=== PATIENT | female | born 1970 | race Caucasian/White ===

== ENCOUNTER 2024-08-26 15:49 | Outpatient (AMB) | payer BC, SELFPAY ==
--- NOTE | 2024-08-26 16:01 | A.OFFPC_ITS ---
Vital Signs 08/26/24 16:05 Height 5 ft 11.65 in Weight 163 lb 2 oz BMI 22.3 BP 100/62 Blood Pressure Location Lt brachial Position Sitting Pulse 60 Pulse Source Pulse Oximeter Temp 97.3 F Temp Source Temporal Artery Scan Pulse Oximetry (%) 98 Oxygen Delivery Method Room Air Intake Visit Reasons: new patient Intake Note: Patient is a new patient here to establish care for Low blood pressure. Transferring care from [facility] ([facility]). Medical records been have requested and have not received. Black And White Printer Operator Required: No Reed Cleaner: Not Required per policy Accompanied by: Self / Same As Patient Allergies No Known Allergies Allergy (Unknown, Verified 08/26/24 16:24) Medication List - Last Reconciled 08/26/24 by Candy Mansfield PA-C No Known Home Meds Tobacco use date assessed: 08/26/24 Dental Screening Dental Screen Date: 08/26/24 Did you have a dental visit in the last 12 months?: Yes Did you have a dental problem in the last 6 months where you did not have access to dental care?: No Was dental information given to patient?: Patient has dentist HPI new patient HPI Details 53-year-old female coming to the office with the 1st time. Presenting for a comprehensive wellness check-up. She has been experiencing mild seasonal allergies, self-diagnosed by symptoms that increase with age. Historically, she had severe episodes of vertigo approximately 8 to 10 years ago, with recent minor occurrences that are manageable. The patient identifies a history of low blood pressure, causing slight dizziness when standing hastily, which she relates to familial trends. She describes vaginal dryness post- menopause without significant discomfort. Patient was last seen by her PCP summer and had a physical exam at that time. She is not up-to-date on Pap smears and has not seen a coremaker in some time. She is also due for her yearly mammogram. Her last colonoscopy was 2 years ago few polyps were removed and advised to follow up in 5 years. 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 1. Little interest or pleasure in doing things: not at all 2. Feeling down, depressed, or hopeless: not at all 3. Trouble falling or staying asleep, or sleeping too much: not at all 4. Feeling tired or having little energy: not at all 5. Poor appetite or overeating: not at all 6. Feeling bad about yourself - or that you are a failure or have let yourself or your family down: not at all 7. Trouble concentrating on things, such as reading the newspaper or watching television: not at all 8. Moving or speaking so slowly that other people could have noticed. Or the opposite - being so fidgety or restless that you have been moving around a lot more than usual: not at all 9. Thoughts that you would be better off or of hurting yourself in some way: not at all Total score: 0 Depression Screening Interpretation: Negative Depression Screening Done: Yes Source: Developed by Drs. Leeroy Villa, Maryellen Marks, Robson Mendiola and colleagues, with an educational diana from [employer]. Thrive Questionnaire Date Thrive assessed: 08/26/24 I am a: Patient What is your living situation today?: I have a steady place to live Within the past 12 months, did the food you bought not last and you didn't have the money to get more?: Never true Within the past 12 months, did you worry whether your food would run out before you got money to buy more?: Never true Do you have trouble paying for medicines?: No Do you have trouble getting transportation to medical appointments?: No Do you have trouble paying your heating and electricity bill?: No Do you have trouble taking care of your child, family member or friend?: No Do you have trouble with day-to-day activities such as bathing, preparing meals, shopping, managing finances, etc.?: No Are you currently unemployed and looking for a job?: No Are you interested in more education?: No Please select the resources that you would like help with: None Currently or been in a relationship where the following occur: No concerns reported THRIVE Score: 0 AUDIT C Alcohol Use Questionnaire (AUDIT-C) 1. How often do you have a drink containing alcohol?: 2-4 times a month 2. How many drinks containing alcohol do you have on a typical day when you are drinking?: 1 or 2 3. How often do you have six or more drinks on one occasion?: Never Total Score: 2 NICHOLAS-7 AMB Questionnaire NICHOLAS-7 Date NICHOLAS - 7 assessed: 08/26/24 Feeling nervous, anxious, or on edge: 0 = Not at all Not being able to stop or control worryin = Not at all Worrying too much about different things: 0 = Not at all Trouble relaxin = Not at all Being so restless that it is hard to sit still: 0 = Not at all Becoming easily annoyed or irritable: 0 = Not at all Feeling afraid as if something awful might happen: 0 = Not at all Total NICHOLAS-7 score (0-4 normal; 5-9 mild; 10-14 moderate; 15-21 severe): 0 Source: Developed by Drs. Leeroy Villa, Maryellen Marks, Robson Mendiola and colleagues, with an educational diana from [employer]. Review of Systems Const Denies body aches, Denies chills, Denies fever(s), Denies headache(s) and Denies poor appetite Eyes Reports no additional complaints and Reports requires corrective lenses ENT Denies dysphagia, Denies dizziness, Denies headache(s) and Denies odynophagia Card Denies chest pain, Denies syncope, Denies edema, Denies irregular heart rhythm, Denies lightheadedness and Denies dyspnea Resp Denies cough and Denies dyspnea GI Denies abdominal pain, Denies constipation, Denies dysphagia, Denies diarrhea, Denies nausea, Denies odynophagia and Denies vomiting Reports no additional complaints Musc Reports no additional complaints and Denies abnormal gait Skin/Breast Reports system reviewed and no additional complaints, except as documented Neuro Denies abnormal gait, Denies dizziness, Denies syncope and Denies headache(s) Psych Reports no additional complaints Physical exam (Primary Care) Vital Signs: Last Vital Signs Temp 97.3 F 08/26/24 16:05 Pulse 60 08/26/24 16:05 BP 100/62 08/26/24 16:05 Pulse Ox 98 08/26/24 16:05 Oxygen Delivery Method Room Air 08/26/24 16:05 BMI result Body Mass Index 22.3 Tobacco/Smoking Status: Tobacco use Status Tobacco use date assessed 08/26/24 08/26/24 16:09 Patient Tobacco Use Status Never used Tobacco 08/26/24 16:14 e-Cigarette/Vaping Use Never Used 08/26/24 16:09 PHQ-9: PHQ-9 Score PHQ-9: Total score 0 08/26/24 16:09 Depression Screening Interpretation: Negative Thrive Assessment: Date of Thrive Assessment Date Thrive assessed 08/26/24 08/26/24 16:09 Currently or been in a relationship where the following occur: No concerns reported Const General: cooperative, healthy appearing, comfortable and no acute distress Orientation/consciousness: patient oriented x3 HENMT Head: Yes normocephalic Ears: hearing grossly normal bilaterally General nose exam: Normal external nose present Eyes General: appearance normal, both eyes and all related structures Conjunctivae: conjunctivae normal Neck Neck: Yes full ROM and Yes no lymphadenopathy Resp Effort & Inspection: normal respiratory effort Auscultation: clear to auscultation bilaterally, no crackles, no rales, no rhonchi and no wheezes Cardio Rate: regular rate Rhythm: regular rhythm Skin General skin exam: no rashes or lesions noted Neuro General: patient oriented x3 Gait exam (Neuro): Normal gait present Extrem General: Yes normal to inspection, Yes full ROM and No edema Psych Affect: normal affect Attitude: cooperative Insight: Good insight present (Psych) Judgement: Good judgement present (Psych) Coding Level of Care Code New Pt Level 3 (60908) Diagnoses BPPV (benign paroxysmal positional vertigo) H81.10 Screening for breast cancer Z12.39 Screening for colorectal cancer Z12.11; Z12.12 Screening for cervical cancer Z12.4 Seasonal allergies J30.2 Vaginal dryness N89.8 Assessment & Plan Assessment & Plan (1) BPPV (benign paroxysmal positional vertigo): Code(s): H81.10 - Benign paroxysmal vertigo, unspecified ear Category: Medical Plan: Patient has extensive history of BPPV 1st noted 8-10 years ago that improved. Underlying cause was not identified. She has had minor recurrences that has been manageable. (2) Screening for breast cancer: Code(s): Z12.39 - Encounter for other screening for malignant neoplasm of breast Category: Medical Plan: Referral was placed for mammogram. Patient was printed a copy as she would like to go to [facility] for this testing. (3) Screening for colorectal cancer: Comment: 2022 repeat in 5 years Code(s): Z12.11 - Encounter for screening for malignant neoplasm of colon; Z12.12 - Encounter for screening for malignant neoplasm of rectum Category: Medical Plan: Previous colonoscopy 2022 few polyps were removed and advised to follow up in 5 years. (4) Screening for cervical cancer: Code(s): Z12.4 - Encounter for screening for malignant neoplasm of cervix Category: Medical Plan: Referral was placed to gynecology today for routine Pap smear. (5) Seasonal allergies: Code(s): J30.2 - Other seasonal allergic rhinitis Category: Medical Plan: Patient to continue using [id number] as needed. (6) Vaginal dryness: Code(s): N89.8 - Other specified noninflammatory disorders of vagina Category: Medical Plan: Patient does report some degree of vaginal dryness associated with a postmenopausal symptoms. She does not find them bothersome at this time and declines management. Plan During the wellness check-up, we discussed ongoing health maintenance strategies and screening tests. I placed a referral for a mammogram and noted that the patient is overdue for a gynecological examination, especially to address mild symptoms of vaginal dryness, likely postmenopausal. As part of her previous colonoscopy, the removal of polyps suggests a follow-up schedule to be slightly altered from the regular intervals. Her low blood pressure remains stable with self-reported occasional dizziness, with vertigo episodes being mild and managed independently. We will continue monitoring her seasonal allergies without immediate escalation to allergenic testing, as symptoms are mild. The patient and I agreed on the current trajectory of care while ensuring comfort with scheduling preferences to local facilities she favors for care continuity. Recent blood work completed by her insurance company plan to bring these to next visit. This note was constructed using voice recognition software. While every effort has been made to ensure accuracy and oxidation engineer, still areas may have been included sometimes these areas may affect the content or meeting of the given symptoms. Total time spent caring for the patient today was 30 minutes. This includes time spent before the visit reviewing the chart, time spent during the visit, and time spent after the visit and documentation. Patient was informed and verbally consented to the use of an ambient scribe for clinic note documentation during this visit. Orders: Orders MM tomosynthesis screening BI Today Z12.31 - Encounter for screening mammogram for malignant neoplasm of breast Referrals ASSEMBLY WORKER Referral Z12.4 - Encounter for screening for malignant neoplasm of cervix
[2024-08-26 16:05] VITALS: BP 100/62; PULSE 60; TEMP 36.3; O2SAT 98; BMI 22.3
== END 2024-08-26 16:39 | disposition home or self-care (01) ==
LOC: HO.HMCH 15:50
DX: H81.10 Benign paroxysmal vertigo, unspecified ear (principal); Z12.39 Encounter for other screening for malignant neoplasm of breast; Z12.11 Encounter for screening for malignant neoplasm of colon; Z12.12 Encounter for screening for malignant neoplasm of rectum; Z12.4 Encounter for screening for malignant neoplasm of cervix; J30.2 Other seasonal allergic rhinitis; N89.8 Other specified noninflammatory disorders of vagina

== ENCOUNTER → 2024-08-26 15:49 | Outpatient (BNVA) | payer BC, SELFPAY | DX: Z13.89 Encounter for screening for other disorder (principal) ==

== ENCOUNTER 2024-09-10 14:20 | Outpatient (AMB) | payer BC, SELFPAY ==
--- NOTE | 2024-09-10 14:24 | MHC.PC.OV ---
Vital Signs 09/10/24 14:25 Height 5 ft 11.65 in Weight 161 lb 8 oz BMI 22.1 BP 120/70 Blood Pressure Location Lt brachial Position Sitting Pulse 71 Pulse Source Pulse Oximeter Temp 97.1 F Temp Source Temporal Artery Scan Pulse Oximetry (%) 98 Oxygen Delivery Method Room Air Intake Visit Reasons: tick bite Intake Note: Patient is here to follow up on Tick bite on left hip with rash. Car Deliverer Required: No Office Support: Not Required per policy Accompanied by: Self / Same As Patient Allergies No Known Allergies Allergy (Unknown, Verified 09/10/24 14:39) Medication List - Last Reconciled 09/10/24 by Candy Mansfield PA-C No Known Home Meds Tobacco use date assessed: 09/10/24 Dental Screening Dental Screen Date: 08/26/24 HPI tick bite HPI Details 53 year old female with past history of BPPV coming in for acute concern. The patient is a 53-year-old female presenting with widespread itchiness secondary to a rash. The patient experienced a tick bite lasting less than an hour, with no erythema migrans observed. Itchy rash initially localized but has since spread across the trunk; the patient could not directly relate the onset to the tick bite. Recent travel and hotel stays are noted, alongside possible environmental allergen exposure during gardening activities. The presentation of the rash correlated with areas of tight-fitting clothing, leading to suspicion of a contact dermatitis. No vesicular or pustular lesions reported. 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 Cognitive needs: No Hearing needs: No Vision needs: Yes (Glasses) Questionnaire Thrive Questionnaire Date Thrive assessed: 08/26/24 I am a: Patient What is your living situation today?: I have a steady place to live Within the past 12 months, did the food you bought not last and you didn't have the money to get more?: Never true Within the past 12 months, did you worry whether your food would run out before you got money to buy more?: Never true Do you have trouble paying for medicines?: No Do you have trouble getting transportation to medical appointments?: No Do you have trouble paying your heating and electricity bill?: No Do you have trouble taking care of your child, family member or friend?: No Do you have trouble with day-to-day activities such as bathing, preparing meals, shopping, managing finances, etc.?: No Are you currently unemployed and looking for a job?: No Are you interested in more education?: No Please select the resources that you would like help with: None Currently or been in a relationship where the following occur: No concerns reported THRIVE Score: 0 NICHOLAS-7 AMB Questionnaire NICHOLAS-7 Date NICHOLAS - 7 assessed: 08/26/24 Source: Developed by Drs. Leeroy Villa, Maryellen Marks, Robson Mendiola and colleagues, with an educational diana from [email or web address]. Review of Systems Const Denies body aches, Denies chills, Denies fever(s), Denies headache(s) and Denies poor appetite Eyes Reports no additional complaints ENT Denies dizziness and Denies headache(s) Card Denies chest pain, Denies lightheadedness and Denies dyspnea Resp Denies dyspnea GI Denies nausea and Denies vomiting Reports no additional complaints Musc Reports no additional complaints and Denies abnormal gait Skin/Breast Reports as per HPI Neuro Denies abnormal gait, Denies dizziness and Denies headache(s) Psych Reports no additional complaints Physical exam (Primary Care) Vital Signs: Last Vital Signs Temp 97.1 F 09/10/24 14:25 Pulse 71 09/10/24 14:25 BP 120/70 09/10/24 14:25 Pulse Ox 98 09/10/24 14:25 Oxygen Delivery Method Room Air 09/10/24 14:25 BMI result Body Mass Index 22.1 Tobacco/Smoking Status: Tobacco use Status Tobacco use date assessed 09/10/24 09/10/24 14:30 Patient Tobacco Use Status Never used Tobacco 09/10/24 14:30 e-Cigarette/Vaping Use Never Used 09/10/24 14:30 Thrive Assessment: Date of Thrive Assessment Date Thrive assessed 08/26/24 09/10/24 14:30 Currently or been in a relationship where the following occur: No concerns reported Const General: cooperative, healthy appearing, comfortable and no acute distress Orientation/consciousness: patient oriented x3 HENMT Head: Yes normocephalic Ears: hearing grossly normal bilaterally General nose exam: Normal external nose present Eyes General: appearance normal, both eyes and all related structures Conjunctivae: conjunctivae normal Neck Neck: Yes full ROM and Yes no lymphadenopathy Resp Effort & Inspection: normal respiratory effort Cardio Rate: regular rate Skin Other: No erythema migraines. Maculopapular rash on an erythematous base along the left belt line and left bra line. No areas of open skin and no vesicular lesions General skin exam: no rashes or lesions noted Full body images: 1. Rash 2. Rash Neuro General: patient oriented x3 Gait exam (Neuro): Normal gait present Extrem General: Yes normal to inspection, Yes full ROM and No edema Psych Affect: normal affect Attitude: cooperative Insight: Good insight present (Psych) Judgement: Good judgement present (Psych) Coding Level of Care Code Est Pt Level 3 (94073) Diagnoses Tick bite W57.XXXA Contact dermatitis L25.9 Assessment & Plan Assessment & Plan (1) Tick bite: Code(s): W57.XXXA - Bitten or stung by nonvenomous insect and other nonvenomous arthropods, initial encounter Category: Medical Plan: Patient having tick bite in the left hip she is requesting prophylaxis with doxycycline and antibiotic has been sent to pharmacy. (2) Contact dermatitis: Code(s): L25.9 - Unspecified contact dermatitis, unspecified cause Category: Medical Plan: Patient having rash on the hip and left side of the chest consistent with contact dermatitis. Rash not consistent with shingles and does not appear to be infectious. She does report the rash is itchy in nature and has been spreading of the abdomen. Plan to treat with prednisone taper and oral antihistamine. Advised patient if rash does not improve or returns to reach out to the office. Plan This note was constructed using voice recognition software. While every effort has been made to ensure accuracy and linux systems engineer, still areas may have been included sometimes these areas may affect the content or meeting of the given symptoms. Total time spent caring for the patient today was 20 minutes. This includes time spent before the visit reviewing the chart, time spent during the visit, and time spent after the visit and documentation. Patient was informed and verbally consented to the use of an ambient scribe for clinic note documentation during this visit.
[2024-09-10 14:25] VITALS: BP 120/70; PULSE 71; TEMP 36.2; O2SAT 98; BMI 22.1
== END 2024-09-10 14:58 | disposition home or self-care (01) ==
LOC: HO.HMCH 14:21
DX: T63.481A Toxic effect of venom of other arthropod, accidental (unintentional), initial encounter (principal); L25.9 Unspecified contact dermatitis, unspecified cause

== ENCOUNTER → 2024-09-10 14:20 | Outpatient (BNVA) | payer BC, SELFPAY | DX: Z13.89 Encounter for screening for other disorder (principal) ==

== ENCOUNTER 2024-12-27 14:51 | Outpatient (AMB) | payer BC, SELFPAY ==
--- OUTSIDE RECORDS SUMMARY | 2024-12-27 14:55 | XMS_ITS | Encounter Summary ---
Author Organization [facility] Address [address] [facility] [address] [place] [id number] Phone Care Team Providers Care Brazer Crawler Torch Name Role Phone Chyna Soliman MD Primary Care Provider Chyna Soliman MD Unavailable [phone] Fallon Shrestha-C Unavailable Candy Mansfield Primary Care Provide r Encounter Details Date Type Department Care Team (Late st Contact Info) Description 04/09/2018 Ancillary Orders Virtual Department [address] [place] [address] Toma Lowe PA [address] [place] [address] [email or web address] et Elevated LFTs; Epigastric pain Social History Tobacco Use Types Packs/Day Years Used Date Smoking Tobacco: Never Alcohol Use Standard Drinks/Week Comments No 0 (1 standard drink = 0.6 oz pur e alcohol) Comments No Sex and Gender Information Value Date Recorded Sex Assigned at Female 04/08/2018 6:35 AM EST Legal Sex Female 4:00 AM EST Gender Identity Female 04/08/2018 6:35 AM EST Sexual Orientation Lesbian or John 11/10/2019 1: 30 PM EDT documented as of this encounter Plan of Treatment Upcoming Encounters Date Type Department Care Team (Late st Contact Info) Description 10/17/2024 Procedure Pass [address] [address] 06/06/2025 7:30 AM EST Appointment [address] [address] Chaparrita Titus MD [address] [facility], [address] [place] [address] .RipCode documented as of this encounter Results * US Abdomen Complete (04/23/2018 7:45 AM EST) Anatomical Region Laterality Modality Abdomen Ultrasound 04/23/2018 8:27 AM EST Impressions 04/23/2018 8:34 AM EST Cholelithiasis. No ultrasound evidence of cholecystitis. POS - [id number] Narrative 04/23/2018 8:34 AM EST EXAM: US ABDOMEN COMPLETE COMPARISON: None HISTORY: Elevated LFTs Epigastric pain TECHNIQUE: Ultrasound examination of the abdomen was performed and multiple static images obtained. FINDINGS: LIVER: Normal size, contour, and echotexture. Small cyst is identified at the periphery of the right hepatic lobe measuring up to 0.7 cm. BILIARY: Multiple mobile gallstones. No gallbladder distention, wall thickening or pericholecystic fluid. Common bile duct measures 0.3 cm. PANCREAS: Visualized portions of the pancreas are unremarkable. SPLEEN: The spleen measures 10.6 cm in sagittal dimension. No focal lesions demonstrated. KIDNEYS: The right kidney measures 11.1 cm in sagittal dimension. No hydronephrosis.. No ultrasound evidence for nephrolithiasis. The left kidney measures 10.7 cm in sagittal dimension. No hydronephrosis.. No ultrasound evidence for nephrolithiasis. MIDLINE VASCULATURE: Visualized aorta and IVC are unremarkable. Procedure Note Kary Saleem MD - 04/23/2018 EXAM: US ABDOMEN COMPLETE COMPARISON: None HISTORY: Elevated LFTs Epigastric pain TECHNIQUE: Ultrasound examination of the abdomen was performed andmultiple static images obtained. FINDINGS: LIVER: Normal size, contour, and echotexture. Small cyst is identified atthe periphery of the right hepatic lobe measuring up to 0.7 cm. BILIARY: Multiple mobile gallstones. No gallbladder distention, wallthickening or pericholecystic fluid. Common bile duct measures 0.3cm. PANCREAS: Visualized portions of the pancreas are unremarkable. SPLEEN: The spleen measures 10.6 cm in sagittal dimension. No focallesions demonstrated. KIDNEYS: The right kidney measures 11.1 cm in sagittal dimension. Nohydronephrosis.. No ultrasound evidence for nephrolithiasis. The left kidney measures 10.7 cm in sagittal dimension. Nohydronephrosis.. No ultrasound evidence for nephrolithiasis. MIDLINE VASCULATURE: Visualized aorta and IVC are unremarkable. IMPRESSION: Cholelithiasis. No ultrasound evidence of cholecystitis. POS - [id number] us Toma ROSS IMG US ABDOMEN Final Result documented in this encounter Visit Diagnoses Diagnosis Elevated LFTs Other abnormal blood chemistry Epigastric pain Abdominal pain, epigastric Elevated LFTs Other abnormal blood chemistry Epigastric pain Abdominal pain, epigastric documented in this encounter Care Teams Brazer Crawler Torch Relationship Specialty Start Date End Date Chyna Soliman MD [address] [place] [address] PCP - General 04/27/17 10/16/24 Candy Mansfield PA [address] [place] [address] [place] [address] PCP - General Physician Hand Cell Tuber 10/17/24 Chyna Soliman MD [address] [place] [address] Insurance Assigned Provider 07/29/23 01/28/24 Fallon Shrestha PA-C [address] [place] [id number] [email or web address] Physician Hand Cell Tuber Hematology 06/14/23 documented as of this encounter Additional Source Comments The information contained in this document represents components of the legal health record. It is not the complete legal health record.[facility]
--- OUTSIDE RECORDS SUMMARY | 2024-12-27 14:55 | XMS_ITS | Encounter Summary ---
Author Organization [facility] Address [address] [facility] [address] [place] [address] Phone Care Team Providers Care Extras Casting Director Name Role Phone Chyna Soliman MD Primary Care Provider [phone] Chyna Soliman MD Unavailable Fallon Shrestha-C Unavailable [phone] Candy Mansfield Primary Care Provide r Encounter Details Date Type Department Care Team (Late st Contact Info) Description 10/16/2017 Ancillary Orders Virtual Department [address] [place] [address] Toma Lowe PA [address] [place] [address] [email or web address] Breast screening Social History Tobacco Use Types Packs/Day Years Used Date Smoking Tobacco: Never Assessed Comments Unknown Sex and Gender Information Value Date Recorded Sex Assigned at Female 04/08/2018 6:35 AM EST Legal Sex Female 4:00 AM EST Gender Identity Female 04/08/2018 6:35 AM EST Sexual Orientation Lesbian or John 11/10/2019 1: 30 PM EDT documented as of this encounter Plan of Treatment Upcoming Encounters Date Type Department Care Team (Late st Contact Info) Description 10/17/2024 Procedure Pass [facility], [facility] [address] [place] [address] 06/06/2025 7:30 AM EST Appointment [facility], Mammography- [facility] [address] [place] [address] Chaparrita Titus MD [address] [place] [address], [address] [place] [address] [email or web address] documented as of this encounter Results * BI MAMMOGRAM SCREENING WITH TOMOSYNTHESIS WITH CAD (BILATERAL) (11/17/2017 10:21 AM EDT) Anatomical Region Laterality Modality Breast Left, Breast Right, Breast Bilateral Bila teral Mammography 11/17/2017 10:2 6 AM EDT Impressions 11/17/2017 10:30 AM EDT No mammographic evidence of malignancy. Recommend routine annual surveillance. BI-RADS CATEGORY: 2 - Benign finding. DENSITY: There are scattered fibroglandular densities. POS - CDHMAMA Narrative 11/17/2017 10:30 AM EDT 47-year-old female with no current breast symptoms. Comparison made to previous on 12/30/2015. Interpretation made in conjunction with computer-aided detection and tomosynthesis. There are scattered areas of fibroglandular density. Stable scattered benign bilateral calcifications and asymmetry in the inferior left breast on the MLO view. There are no suspicious masses, areas of architectural distortion, or suspicious clusters of microcalcifications. Procedure Note Mary Jo Tilley MD - 11/17/2017 47-year-old female with no current breast symptoms. Comparison made toprevious on 12/30/2015. Interpretation made in conjunction withcomputer-aided detection and tomosynthesis. There are scattered areas of fibroglandular density. Stable scatteredbenign bilateral calcifications and asymmetry in the inferior left breaston the MLO view. There are no suspicious masses, areas of architectural distortion, orsuspicious clusters of microcalcifications. IMPRESSION: No mammographic evidence of malignancy. Recommend routine annualsurveillance. BI-RADS CATEGORY: 2 - Benign finding. DENSITY: There are scattered fibroglandular densities. POS - CDHMAMA Toma ROSS IMG MG EXAMS Final Result documented in this encounter Visit Diagnoses Diagnosis Breast screening Breast screening, unspecified Breast screening Breast screening, unspecified documented in this encounter Care Teams Extras Casting Director Relationship Specialty Start Date End Date Chyna Soliman MD [address] [place] [address] PCP - General 04/27/17 10/16/24 Candy Mansfield PA [address] [place] [address] [place] [address] PCP - General Physician Direct Customer Service Representative 10/17/24 Chyna Soliman MD [address] [place] [phone] [email or web address] Insurance Assigned Provider 07/29/23 01/28/24 Fallon Shrestha PA-C [address] [place] [address] Physician Direct Customer Service Representative Hematology 06/14/23 documented as of this encounter Additional Source Comments The information contained in this document represents components of the legal health record. It is not the complete legal health record.[facility]
--- OUTSIDE RECORDS SUMMARY | 2024-12-27 14:55 | XMS_ITS | Encounter Summary ---
Author Organization [facility] Address [address] [facility] [address] [place] [address] Phone Care Team Providers Care Skidder Driver Name Role Phone Chyna Soliman MD Primary Care Provider Chyna Soliman MD Unavailable Fallon Shrestha PA-C Unavailable Candy Mansfield Primary Care Provide r Encounter Details Date Type Department Care Team (Late st Contact Info) Description 02/22/2022 Procedure Pass [facility] Endoscopy Admitting Dept Virtual Department [address] [place] [address] Social History Tobacco Use Types Packs/Day Years Used Date Smoking Tobacco: Never Smokeless Tobacco: Never Alcohol Use Standard Drinks/Week Comments Yes 1 (1 standard drink = 0.6 oz pur [...] Encounters Date Type Department Care Team (Late Contact Info) Description 10/17/2024 Procedure Pass [address] [address] 06/06/2025 7:30 AM EST Appointment [address] [place] [address] Chaparrita Titus MD [address] [facility], [address] [place] [address] documented as of this encounter Visit Diagnoses Not on filedocumented in this encounter Care Teams Skidder Driver Relationship Specialty Start Date End Date Chyna Soliman MD [address] [place] [address] PCP - General 04/27/17 10/16/24 Candy Mansfield PA [address] [place] [address] PCP - General Physician Mobile Health Vehicle Operator 10/17/24 Chyna Soliman MD [address] [place] [phone] Insurance Assigned Provider 07/29/23 01/28/24 Fallon Shrestha PA-C [address] [place] [address] Physician Mobile Health Vehicle Operator Hematology 06/14/23 documented as of this encounter Additional Source Comments The information contained in this document represents components of the legal health record. It is not the complete legal health record.[facility]
--- OUTSIDE RECORDS SUMMARY | 2024-12-27 14:55 | XMS_ITS | Encounter Summary ---
Author Organization [facility] Address [address] [facility] [address] [place] [address] Phone Care Team Providers Care Taste Tester Name Role Phone Chyna Soliman MD Primary Care Provider Chyna Soliman MD Unavailable Fallon Shrestha-C Unavailable Candy Mansfield Primary Care Provide r Encounter Details Date Type Department Care Team (Late st Contact Info) Description 11/17/2017 Ancillary Orders Virtual Department [address] [place] [address] Chyna Soliman MD [address] [place] [address] [email or web address] Breast screening Social History Tobacco Use Types Packs/Day Years Used Date Smoking Tobacco: Never Assessed Comments No Sex and Gender Information Value Date Recorded Sex Assigned at Female 04/08/2018 6:35 AM EST Legal Sex Female 4:00 AM EST Gender Identity Female 04/08/2018 6:35 AM EST Sexual Orientation Lesbian or John 11/10/2019 1: 30 PM EDT documented as of this encounter Plan of Treatment Upcoming Encounters Date Type Department Care Team (Late st Contact Info) Description 10/17/2024 Procedure Pass [facility], [facility]- [address] [address] 06/06/2025 7:30 AM EST Appointment [facility], Mammography- [facility] [address] [place] [address] Chaparrita Titus MD [address] [place] [address], [address] [place] [address] [email or web address] documented as of this encounter Results * BI MAMMOGRAM SCREENING WITH TOMOSYNTHESIS WITH CAD (BILATERAL) (11/19/2018 7:41 AM EDT) Anatomical Region Laterality Modality Breast Left, Breast Right, Breast Bilateral Bila teral Mammography 11/19/2018 7:48 AM EDT Impressions 11/19/2018 7:51 AM EDT No mammographic evidence of malignancy. Recommend routine annual surveillance. BI-RADS CATEGORY: 2 - Benign finding. DENSITY: There are scattered fibroglandular densities. POS - [email or web address] Narrative 11/19/2018 7:51 AM EDT 48-year-old female with no current breast symptoms. Comparison made to previous on 11/17/2017 and 12/30/2015. Interpretation made in conjunction with computer-aided detection and tomosynthesis. There are scattered areas of fibroglandular density. Stable benign bilateral calcifications. The inferior left breast asymmetry on the MLO is less apparent. There are no suspicious masses, areas of architectural distortion, or suspicious clusters of microcalcifications. Procedure Note Mary Jo Tilley MD - 11/19/2018 48-year-old female with no current breast symptoms. Comparison made toprevious on 11/17/2017 and 12/30/2015. Interpretation made in conjunctionwith computer-aided detection and tomosynthesis. There are scattered areas of fibroglandular density. Stable benignbilateral calcifications. The inferior left breast asymmetry on the MLOis less apparent. There are no suspicious masses, areas of architectural distortion, orsuspicious clusters of microcalcifications. IMPRESSION: No mammographic evidence of malignancy. Recommend routine annualsurveillance. BI-RADS CATEGORY: 2 - Benign finding. DENSITY: There are scattered fibroglandular densities. POS - CDHMAM2 Chyna Soliman MD IMG MG EXAMS Final Resul t documented in this encounter Visit Diagnoses Diagnosis Breast screening Breast screening, unspecified Breast screening Breast screening, unspecified documented in this encounter Care Teams Taste Tester Relationship Specialty Start Date End Date Chyna Soliman MD [address] [place] [address] PCP - General 04/27/17 10/16/24 Candy Mansfield PA [address] [place] [address] [place] [address] PCP - General Physician Case Management Specialist 10/17/24 Chyna Soliman MD [address] [place] [address] Insurance Assigned Provider 07/29/23 01/28/24 Fallon Shrestha PA-C [address] [place] [address] Physician Case Management Specialist Hematology 06/14/23 documented as of this encounter Additional Source Comments The information contained in this document represents components of the legal health record. It is not the complete legal health record.[facility]
--- OUTSIDE RECORDS SUMMARY | 2024-12-27 14:56 | XMS_ITS | Encounter Summary ---
Author Organization [facility] Address [address] [facility] [address] [place] [address] Phone Care Team Providers Care Invoice Control Clerk Name Role Phone Chyna Soliman MD Primary Care Provider Chyna Soliman MD Unavailable [phone] Fallon Shrestha PA-C Unavailable [phone] Candy Mansfield Primary Care Provide r Encounter Details Date Type Department Care Team (Late st Contact Info) Description 11/24/2020 Procedure Pass [address] [address] Social History Tobacco Use Types Packs/Day Years [...] st Contact Info) Description 10/17/2024 Procedure Pass [address] [address] 06/06/2025 7:30 AM EST Appointment [place] [address] [place] [address] Chaparrita Titus MD 22 [facility], [address] [place] [address] documented as of this encounter Visit Diagnoses Not on filedocumented in this encounter Care Teams Invoice Control Clerk Relationship Specialty Start Date End Date Chyna Soliman MD [address] [place] [address] PCP - General 04/27/17 10/16/24 Candy Mansfield PA [address] [place] [address] PCP - General Physician Service Order Clerk 10/17/24 Chyna Soliman MD [address] [place] [address] Insurance Assigned Provider 07/29/23 01/28/24 Fallon Shrestha PA-C [address] [place] [address] Physician Service Order Clerk Hematology 06/14/23 documented as of this encounter Additional Source Comments The information contained in this document represents components of the legal health record. It is not the complete legal health record.[facility]
--- OUTSIDE RECORDS SUMMARY | 2024-12-27 14:56 | XMS_ITS | Encounter Summary ---
Author Organization [facility] Address [address] [employer] [facility] [address] [place] [address] Phone Care Team Providers Care Predictive Maintenance Technician Name Role Phone Chyna Soliman MD Primary Care Provider Chyna Soliman MD Unavailable [phone] Fallon ShresthaC Unavailable Candy Mansfield Primary Care Provide r Encounter Details Date Type Department Care Team (Late st Contact Info) Description 10/24/[address] [facility] Department [address] [place] [address] Chyna Soliman MD [address] [place] [address] [email or web address] Breast screening Social History Tobacco Use Types [...] st Contact Info) Description 10/17/2024 Procedure Pass [facility], Mammography- [address] [address] 06/06/2025 7:30 AM EST Appointment [facility], Mammography- [address] [address] Chaparrita Titus MD [address] [place] [address], [address] [place] [address] [email or web address] documented as of this encounter Results * BI MAMMOGRAM SCREENING WITH TOMOSYNTHESIS WITH CAD (BILATERAL) (12/06/2019 7:49 AM EDT) Anatomical Region Laterality Modality Breast Left, Breast Right, Breast Bilateral Bila teral Mammography 12/06/2019 6:51 PM EDT Impressions 12/06/2019 6:54 PM EDT BILATERAL BREASTS: Negative, no evidence of malignancy. Normal interval follow- up is recommended in 12 months. BI-RADS: BI-RADS CATEGORY: 1 - Negative. DENSITY: There are scattered fibroglandular densities. Narrative 12/06/2019 6:54 PM EDT STUDY: Bilateral screening mammography with tomosynthesis and CAD TECHNIQUE: Bilateral full-field digital screening mammography is obtained and read in conjunction with computer-aided detection. Tomosynthesis as well as 2-D C view imaging were obtained. COMPARISON: Comparison made to multiple prior, most recent November 19, 2018, and most remote December 30, 2015. BREAST COMPOSITION: There are scattered areas of fibroglandular density BILATERAL BREASTS: No significant masses, calcifications or other abnormalities are seen. Procedure Note Kary Saleem MD - 12/06/2019 STUDY: Bilateral screening mammography with tomosynthesis and CAD TECHNIQUE: Bilateral full-field digital screening mammography is obtainedand read in conjunction with computer-aided detection. Tomosynthesis aswell as 2-D C view imaging were obtained. COMPARISON: Comparison made to multiple prior, most recent November 19, 2018,and most remote December 30, 2015. BREAST COMPOSITION: There are scattered areas of fibroglandulardensity BILATERAL BREASTS: No significant masses, calcifications or otherabnormalities are seen. IMPRESSION: BILATERAL BREASTS: Negative, no evidence of malignancy. Normal intervalfollow-up is recommended in 12 months. BI-RADS: BI-RADS CATEGORY: 1 - Negative. DENSITY: There are scattered fibroglandular densities. Chyna Soliman MD IMG MG EXAMS Final Resul t documented in this encounter Visit Diagnoses Diagnosis Breast screening Breast screening, unspecified Breast screening Breast screening, unspecified documented in this encounter Care Teams Predictive Maintenance Technician Relationship Specialty Start Date End Date Chyna Soliman MD [address] [place] [address] PCP - General 04/27/17 10/16/24 Candy Mansfield PA [address] [place] [address] [place] [address] PCP - General Physician Medical Equipment Sales 10/17/24 Chyna Soliman MD [address] [place] [address] Insurance Assigned Provider 07/29/23 01/28/24 Fallon Shrestha PA-C [address] [place] [address] Physician Medical Equipment Sales Hematology 06/14/23 documented as of this encounter Additional Source Comments The information contained in this document represents components of the legal health record. It is not the complete legal health record.[facility]
--- OUTSIDE RECORDS SUMMARY | 2024-12-27 14:56 | XMS_ITS | Encounter Summary ---
Author Organization [facility] Address [address] [facility] [address] [place] [address] Phone Care Team Providers Care Teletypesetter Monitor Name Role Phone Chyna Soliman MD Primary Care Provider Chyna Soliman MD Unavailable Fallon Shrestha-C Unavailable Candy Mansfield Primary Care Provide r Encounter Details Date Type Department Care Team (Latest Contact Info) Description 02/28/2019 Transcribe Orders [facility] [address] [place] [address] Freddy Bird MD [address] [facility] 2 [place] [address] [email or web address] Elevated LFTs (Primary Dx); Calculus of gallbladder without cholecystitis without obstruction Social History Tobacco Use Types Packs/Day Years [...] st Contact Info) Description 10/17/2024 Procedure Pass [address] [address] 06/06/2025 7:30 AM EST Appointment [address] [address] Chaparrita Titus MD [address] [place] [address], [address] [place] [address] [email or web address] documented as of this encounter Results * (ABNORMAL) Ova and parasites, stool (03/05/2019 7:34 AM EST) Pathologist [facility] Special Requests None 03/05/2019 7:34 AM EST [facility] DIRECT EXAM GIARDIA LAMBLIA SEEN IN FORMALIN CONCENTRATE (A) 03/06/2019 2:53 PM EST [facility] DIRECT EXAM No parasites found by Trichrome Stain 03/06/2019 2:53 PM EST [facility] Stool (Stool) 03/05/2019 7:3 4 AM EST 03/05/2019 7:36 AM EST us Freddy Bird MD MICROBIOLOGY - GENERAL ORDERA BLES Final Result [facility] [address] [place] [address] * H. pylori antigen, stool (03/05/2019 7:34 AM EST) H.PYLORI AG Negative Negative [facility] DPT OF LAB MED AND PAT+ Stool (Stool) 03/05/2019 7:3 4 AM EST 03/05/2019 7:36 AM EST us Freddy Bird MD BODY FLUIDS AND STOOLS ORDERA BLES Final Result [facility] DPT OF LAB MED AND PAT+ [address] [place] [address] * (ABNORMAL) Giardia antigen screen (03/05/2019 7:34 AM EST) Pathologist [facility] ST GIARDIA ANTIGEN Positive(A ) Negative [facility] DPT OF LAB MED AND PAT+ Comment: (NOTE) Stool containing large amounts of leukocytes or red blood cells may give falsely positive results. ADDITIONAL INFORMATION Test Performed by Enzyme Immunoassay. Stool (Stool) 03/05/2019 7:3 4 AM EST 03/05/2019 7:36 AM EST us Freddy Bird MD MICROBIOLOGY - GENERAL ORDERA BLES Final Result [facility] DPT OF LAB MED AND PAT+ [address] [place] [address] * Ova and parasites, stool (03/03/2019 7:38 AM EST) Pathologist [facility] Special Requests None 03/05/2019 7:38 AM EST [facility] DIRECT EXAM NO PARASITES FOUND BY DIRECT OR CONCENTRATION METHODS 03/06/2019 2:12 PM EST [facility] DIRECT EXAM No parasites found by Trichrome Stain 03/06/2019 2:12 PM EST [facility] Stool (Stool) 03/03/2019 7:3 8 AM EST 03/05/2019 7:39 AM EST us Freddy Bird MD MICROBIOLOGY - GENERAL ORDERA BLES Final Result [facility] [address] [place] [address] * Sedimentation rate (ESR) (02/28/2019 4:18 PM EST) Pathologist [facility] ESR 2 0 - 20 mm/h [facility] Blood 02/28/2019 4:18 PM EST 02/28/2019 4:24 PM EST us Freddy Bird MD LAB BLOOD ORDERABLES Final Re sult Performing Organization Address [facility]/ZIP Co de Phone Number [address] [address] * C-Reactive Protein (02/28/2019 4:18 PM EST) C REACTIVE PROTEIN 0.8 0.0 - 4.0 mg/L [facility] Blood 02/28/2019 4:18 PM EST 02/28/2019 4:24 PM EST us Freddy Bird MD LAB BLOOD ORDERABLES Final Re sult Performing Organization Address [facility] Co de Phone Number [address] [address] * (ABNORMAL) Ova and parasites, stool (02/28/2019 7:35 AM EST) Special Requests None 03/05/2019 7:35 AM EST [facility] DIRECT EXAM GIARDIA LAMBLIA SEEN IN FORMALIN CONCENTRATE (A) 03/06/2019 2:54 PM EST [facility] DIRECT EXAM GIARDIA LAMBLIA SEEN IN TRICHROME STAINED SMEAR (A) 03/06/2019 2:54 PM EST [facility] Stool (Stool) 02/28/2019 7:3 5 AM EST 03/05/2019 7:37 AM EST us Freddy Bird MD MICROBIOLOGY - GENERAL ORDERA BLES Final Result Performing Organization Address City/[facility]/ZIP Co de Phone Number [address] [address] documented in this encounter Visit Diagnoses Diagnosis Elevated LFTs- Primary Other abnormal blood chemistry Calculus of gallbladder without cholecystitis without obstruction documented in this encounter Care Teams Teletypesetter Monitor Relationship Specialty Start Date End Date Chyna Soliman MD [address] [place] [address] PCP - General 04/27/17 10/16/24 Candy Mansfield PA [address] [place] [address] [place] [address] PCP - General Physician Head Packager 10/17/24 Chyna Soliman MD [address] [place] [address] [email or web address] Insurance Assigned Provider 07/29/23 01/28/24 Fallon Shrestha PA-C [address] [place] [address] [email or web address] Physician Head Packager Hematology 06/14/23 documented as of this encounter Additional Source Comments The information contained in this document represents components of the legal health record. It is not the complete legal health record.[facility]
--- OUTSIDE RECORDS SUMMARY | 2024-12-27 14:56 | XMS_ITS | Encounter Summary ---
Author Organization [facility] Address [address] [facility] [address] [place] [address] Phone Care Team Providers Care Import Customs Clearing Agent Name Role Phone Cyhna Soliman MD Primary Care Provider Chyna Soliman MD Unavailable Fallon ShresthaC Unavailable Candy Mansfield Primary Care Provide r Encounter Details Date Type Department Care Team (Late st Contact Info) Description 09/11/2023 Transcribe Orders Virtual Department 30 [place] [address] Chyna Soliman MD 15 [place] [address] [email or web address] Breast screening (Primary Dx) Social History Tobacco Use Types Packs/Day Years Used Date Smoking Tobacco: Never Smokeless Tobacco: Never Alcohol Use Standard Drinks/Week Comments Yes 1 (1 standard drink = 0.6 oz pur e alcohol) Education Answer Date Recorded Are you interested in more education? Not on do e 08/19/2022 Are you concerned about learning? Not on file 08/19/2022 No 08/19/2022 No 08/19/2022 Digital Access Answer Date Recorded No 09/19/2022 No 09/19/2022 Reliable internet access at home? Not on file 09/19/2022 Device with a working camera? Not on file Comments No Sex and Gender Information Value Date Recorded Sex Assigned at Female 04/08/2018 6:35 AM EST Legal Sex Female 4:00 AM EST Gender Identity Female 04/08/2018 6:35 AM EST Sexual Orientation Lesbian or John 11/10/2019 1: 30 PM EDT documented as of this encounter Plan of Treatment Upcoming Encounters Date Type Department Care Team (Late st Contact Info) Description 10/17/2024 Procedure Pass [address] [address] 06/06/2025 7:30 AM EST Appointment [address] [address] Chaparrita Titus MD [address] [place] [address], [address] [place] [address] [email or web address] documented as of this encounter Results * BI MAMMOGRAM SCREENING WITH TOMOSYNTHESIS WITH CAD (BILATERAL) (11/08/2023 7:44 AM EDT) Anatomical Region Laterality Modality Breast Left, Breast Right, Breast Bilateral Bila teral Mammography 11/08/2023 1:09 PM EDT Impressions 11/08/2023 1:11 PM EDT No mammographic evidence of malignancy in either breast. Annual screening mammography is recommended. BI-RADS 1 NEGATIVE The patient will be notified of the results and recommendations. Narrative 11/08/2023 1:11 PM EDT BI MAMMOGRAM SCREENING WITH TOMOSYNTHESIS WITH CAD (BILATERAL) Additional patient information: Screening. COMPARISON: Comparison is made with relevant prior imaging. Breast composition: There are scattered areas of fibroglandular density. FINDINGS: No abnormal masses, suspicious calcifications, or other significant findings are identified mammographically in either breast. There has been no interval change. Procedure Note Sade Barrera MD - 11/08/2023 BI MAMMOGRAM SCREENING WITH TOMOSYNTHESIS WITH CAD (BILATERAL) Additional patient information: Screening. COMPARISON: Comparison is made with relevant prior imaging. Breast composition: There are scattered areas of fibroglandular density. FINDINGS: No abnormal masses, suspicious calcifications, or other significantfindings are identified mammographically in either breast. There has been no interval change. IMPRESSION: No mammographic evidence of malignancy in either breast. Annual screening mammography is recommended. BI-RADS 1 NEGATIVE The patient will be notified of the results and recommendations. Chyna Soliman MD IMG MG EXAMS Final Resul t documented in this encounter Visit Diagnoses Diagnosis Breast screening- Primary Breast screening, unspecified Breast screening Breast screening, unspecified documented in this encounter Care Teams Import Customs Clearing Agent Relationship Specialty Start Date End Date Chyna Soliman MD 15 [place] [address] [email or web address] PCP - General 04/27/17 10/16/24 Candy aMnsfield PA [address] [place] [address] Dr Tamayo [address] [place] [address] PCP - General Physician Reservoir Engineering Advisor 10/17/24 Chyna Soliman MD [address] [place] [phone] [email or web address] Insurance Assigned Provider 07/29/23 01/28/24 Fallon Shrestha PA-C [address] [place] [address] Physician Reservoir Engineering Advisor Hematology 06/14/23 documented as of this encounter Additional Source Comments The information contained in this document represents components of the legal health record. It is not the complete legal health record.[facility]
--- OUTSIDE RECORDS SUMMARY | 2024-12-27 14:56 | XMS_ITS | Encounter Summary ---
Author Organization [facility] Address 399 [facility] [address] [place] [address] Phone Care Team Providers Care Technical Expert Name Role Phone Chyna Soliman MD Primary Care Provider Chyna Soliman MD Unavailable [phone] Fallon Shrestha PA-C Unavailable [phone] Candy Mansfield Primary Care Provide r Encounter Details Date Type Department Care Team (Late st Contact Info) Description 04/20/2021 Procedure Pass [address] [address] Social History Tobacco Use Types Packs/Day Years [...] st Contact Info) Description 10/17/2024 Procedure Pass [address] [address] 06/06/2025 7:30 AM EST Appointment [place] [address] [place] [address] Chaparrita Titus MD [address] [facility], [address] [place] [address] documented as of this encounter Visit Diagnoses Not on filedocumented in this encounter Care Teams Technical Expert Relationship Specialty Start Date End Date Chyna Soliman MD [address] [place] [phone] [email or web address] PCP - General 04/27/17 10/16/24 Candy Mansfield PA [address] [place] [address] PCP - General Physician Apparel Patternmaker 10/17/24 Chyna Soliman MD [address] [place] [address] Insurance Assigned Provider 07/29/23 01/28/24 Fallon Shrestha PA-C [address] [place] [address] Physician Apparel Patternmaker Hematology 06/14/23 documented as of this encounter Additional Source Comments The information contained in this document represents components of the legal health record. It is not the complete legal health record.[facility]
--- OUTSIDE RECORDS SUMMARY | 2024-12-27 14:56 | XMS_ITS | Encounter Summary ---
Author Organization [facility] Address [address] [facility] [address] [place] [address] Phone Care Team Providers Care Research Dairy Farm Supervisor Name Role Phone Chyna Soliman MD Primary Care Provider Chyna Soliman MD Unavailable [phone] Fallon Shrestha-C Unavailable Candy Mansfield Primary Care Provide r Encounter Details Date Type Department Care Team (Late st Contact Info) Description 02/22/2019 Ancillary Orders Virtual Department 30 [place] [address] Toma Lowe PA [address] [place] [address] [email or web address] Epigastric pain; History of gallstones Social History Tobacco Use Types Packs/Day Years [...] st Contact Info) Description 10/17/2024 Procedure Pass [address] [address] 06/06/2025 7:30 AM EST Appointment [address] [address] Chaparrita Titus MD 22 [facility], [address] [place] [address] documented as of this encounter Visit Diagnoses Diagnosis Epigastric pain Abdominal pain, epigastric History of gallstones Personal history of other diseases of digestive disease documented in this encounter Care Teams Research Dairy Farm Supervisor Relationship Specialty Start Date End Date Chyna Soliman MD [address] [place] [address] PCP - General 04/27/17 10/16/24 Candy Mansfield PA [address] [place] [address] PCP - General Physician Air Transportation Provider 10/17/24 Chyna Soliman MD [address] [place] [address] Insurance Assigned Provider 07/29/23 01/28/24 Fallon Shrestha PA-C [address] [place] [address] Physician Air Transportation Provider Hematology 06/14/23 documented as of this encounter Additional Source Comments The information contained in this document represents components of the legal health record. It is not the complete legal health record.[facility]
--- OUTSIDE RECORDS SUMMARY | 2024-12-27 14:56 | XMS_ITS | Encounter Summary ---
Author Organization [facility] Address [address] [facility] [address] [place] [address] Phone Care Team Providers Care Experimental Psychologist Name Role Phone Chyna Soliman MD Primary Care Provider [phone] Chyna Soliman MD Unavailable [phone] Fallon Shrestha-C Unavailable Candy Mansfield Primary Care Provide r Encounter Details Date Type Department Care Team (Latest Contact Info) Description 03/03/2019 Transcribe Orders [facility] Laboratory 30 [place] [address] Freddy Bird MD [address] [address] [email or web address] Elevated LFTs; Calculus of gallbladder without cholecystitis without obstruction [...] st Contact Info) Description 10/17/2024 Procedure Pass [address] [address] 06/06/2025 7:30 AM EST Appointment [address] [address] Chaparrita Titus MD [address] [place] [address], [address] [place] [address] [email or web address] documented as of this encounter Procedures Procedure Name Priority Date/Time Associated Diagnosis Comments OVA AND PARASITES, STOOL Routine 03/03/2019 7:38 AM EST Elevated LFTs Calculus of gallbladder without cholecystitis without obstruction documented in this encounter Results * Ova and parasites, stool (03/03/2019 7:38 AM EST) Special Requests None 03/05/2019 7:38 AM EST [facility] DIRECT EXAM NO PARASITES FOUND BY DIRECT OR CONCENTRATION METHODS 03/06/2019 2:12 PM EST [facility] DIRECT EXAM No parasites found by Trichrome Stain 03/06/2019 2:12 PM EST [facility] Stool (Stool) 03/03/2019 7:3 8 AM EST 03/05/2019 7:39 AM EST us Freddy Bird MD MICROBIOLOGY - GENERAL ORDERA BLES Final Result [address] [address] documented in this encounter Visit Diagnoses Diagnosis Elevated LFTs Other abnormal blood chemistry Calculus of gallbladder without cholecystitis without obstruction documented in this encounter Care Teams Experimental Psychologist Relationship Specialty Start Date End Date Chyna Soliman MD [address] [place] [address] [email or web address] PCP - General 04/27/17 10/16/24 Candy Mansfield PA [address] [place] [address] [place] [address] PCP - General Physician Production Support Specialist 10/17/24 Chyna Soliman MD [address] [place] [address] [email or web address] Insurance Assigned Provider 07/29/23 01/28/24 Fallon Shrestha PA-C [address] [place] [address] Physician Production Support Specialist Hematology 06/14/23 documented as of this encounter Additional Source Comments The information contained in this document represents components of the legal health record. It is not the complete legal health record.[facility]
--- OUTSIDE RECORDS SUMMARY | 2024-12-27 14:56 | XMS_ITS | Encounter Summary ---
Author Organization [facility] Address [address] [facility] [address] [place] [address] Phone Care Team Providers Care Rinkman Name Role Phone Chyna Soliman MD Primary Care Provider Chyna Soliman MD Unavailable Fallon Shrestha-C Unavailable [phone] Candy Mansfield Primary Care Provide r Encounter Details Date Type Department Care Team (Latest Contact Info) Description 04/21/2018 Transcribe Orders [facility] Laboratory 30 [place] [address] Toma Lowe PA [address] [place] [address] [email or web address] Elevated LFTs (Primary Dx) Social History Tobacco Use Types [...] st Contact Info) Description 10/17/2024 Procedure Pass [address] [address] 06/06/2025 7:30 AM EST Appointment [address] [address] Chaparrita Titus MD 22 [facility], [address] [place] [address] [email or web address] documented as of this encounter Results * TSH with reflex (04/21/2018 10:49 AM EST) TSH 1.38 0.27 - 4.20 uIU/mL [facility] Blood 04/21/2018 10:4 9 AM EST 04/21/2018 10:51 AM EST us [facility] BLOOD ORDERABLES Final Resu lt [address] [address] * (ABNORMAL) LFTs (hepatic panel) (04/21/2018 10:49 AM EST) ALKALINE PHOSPHATASE 63 39 - 117 U/L [facility] TOTAL BILIRUBIN 0.6 0.0 - 1.2 mg/dL [facility] DIRECT BILIRUBIN <0.2 0 - 0.3 mg/dL [facility] Bilirubin (Indirect) NOT CALCULATED 0 - 1.5 mg/dL [facility] AST 37 0 - 37 U/L [facility] ALT 44(H) 0 - 40 U/L [facility] TOTAL PROTEIN 6.8 6.5 - 8.0 g/dL [facility] ALBUMIN 4.2 3.9 - 4.8 g/dL [facility] GLOBULIN 2.6 1 - 4.8 g/dL [facility] A/G Ratio 1.62 1.00 - 4.80 RATIO [facility] Blood 04/21/2018 10:4 9 AM EST 04/21/2018 10:51 AM EST us [facility] BLOOD ORDERABLES Final Resu lt [address] [address] documented in this encounter Visit Diagnoses Diagnosis Elevated LFTs- Primary Other abnormal blood chemistry documented in this encounter Care Teams Rinkman Relationship Specialty Start Date End Date Chyna Soliman MD 15 [place] [address] PCP - General 04/27/17 10/16/24 Candy Mansfield PA [address] [place] [address] [place] [address] PCP - General Physician Sales And Leasing Consultant 10/17/24 Chyna Soliman MD [address] [place] [address] Insurance Assigned Provider 07/29/23 01/28/24 Fallon Shrestha PA-C [address] [place] [address] Physician Sales And Leasing Consultant Hematology 06/14/23 documented as of this encounter Additional Source Comments The information contained in this document represents components of the legal health record. It is not the complete legal health record.[facility]
--- OUTSIDE RECORDS SUMMARY | 2024-12-27 14:56 | XMS_ITS | Encounter Summary ---
Author Organization [facility] Address [address] [place] [address] Phone Care Team Providers Care Employment Programs Analyst Name Role Phone Chyna Soliman MD Primary Care Provider [phone] Chyna Soliman MD Unavailable [phone] Fallon ShresthaC Unavailable [phone] Candy Mansfield Primary Care Provide r Encounter Details Date Type Department Care Team (Late st Contact Info) Description 08/26/2020 Ancillary Orders [facility],[address] [address] System, Provider Not In, [place] [address] Social History Tobacco Use Types Packs/Day Years [...] st Contact Info) Description 10/17/2024 Procedure Pass [facility], [facility] 30 [place] [address] 06/06/2025 7:30 AM EST Appointment [facility], [facility] 30 [place] [address] Chaparrita Titus MD [address] [place] [address], [address] [place] [address] [email or web address] documented as of this encounter Results * XR Lower Extremity Outside (No Interpretation) (07/16/2020 12:00 AM EDT) Narrative SYSTEMGENERATED, DOCUMENTATION - 08/26/2020 2:59 PM EDT This study is for PACS storage only and not for interpretation. us Provider Not In System PhD IMG OUTSIDE IMAGING W /OUT INTERPRETATION Final Result * XR Lower Extremity Outside (No Interpretation) (12/24/2019 12:00 AM EDT) Narrative SYSTEMGENERATED, DOCUMENTATION - 08/26/2020 2:58 PM EDT This study is for PACS storage only and not for interpretation. us Provider Not In System PhD IMG OUTSIDE IMAGING W /OUT INTERPRETATION Final Result * XR Lower Extremity Outside (No Interpretation) (11/05/2019 12:00 AM EDT) Narrative SYSTEMGENERATED, DOCUMENTATION - 08/26/2020 3:00 PM EDT This study is for PACS storage only and not for interpretation. us Provider Not In System PhD IMG OUTSIDE IMAGING W /OUT INTERPRETATION Final Result * XR Lower Extremity Outside (No Interpretation) (09/06/2019 12:00 AM EDT) Narrative SYSTEMGENERATED, DOCUMENTATION - 08/26/2020 2:59 PM EDT This study is for PACS storage only and not for interpretation. us Provider Not In System PhD IMG OUTSIDE IMAGING W /OUT INTERPRETATION Final Result documented in this encounter Visit Diagnoses Not on filedocumented in this encounter Care Teams Employment Programs Analyst Relationship Specialty Start Date End Date Chyna Soliman MD 15 [place] [address] [email or web address] PCP - General 04/27/17 10/16/24 Candy Mansfield PA [address] [place] [address] [facility] [place] [address] PCP - General Physician Night Stocker 10/17/24 Chyna Soliman MD 15 [place] [address] [email or web address] Insurance Assigned Provider 07/29/23 01/28/24 Fallon Shrestha PA-C [address] [place] [email or web address] Physician Night Stocker Hematology 06/14/23 documented as of this encounter Additional Source Comments The information contained in this document represents components of the legal health record. It is not the complete legal health record.[facility]
--- OUTSIDE RECORDS SUMMARY | 2024-12-27 14:56 | XMS_ITS | Encounter Summary ---
Author Organization [facility] Address [address] [facility] [address] [place] [address] Phone Care Team Providers Care Security System Administrator Name Role Phone Chyna Soliman MD Primary Care Provider Chyna Soliman MD Unavailable Fallon Shrestha-C Unavailable [phone] Candy Mansfield Primary Care Provide r Encounter Details Date Type Department Care Team (Late st Contact Info) Description 12/17/2018 Procedure Pass [facility], [address] [address] Social History Tobacco Use Types Packs/Day Years [...] PM EDT documented as of this encounter Last Filed Vital Signs Vital Sign Reading Time Taken Comments Blood Pressure - - Pulse - - Temperature - - Respiratory Rate - - Oxygen Saturation - - Inhaled Oxygen Concentration - - Weight 74.8 kg (165 lb) 12/19/2018 12:07 PM EDT Height 185.4 cm (6' 1 ) 12/19/2018 12:07 PM EDT Body Mass Index 21.77 12/19/2018 12:07 PM EDT documented in this encounter Plan of Treatment Upcoming Encounters Date Type Department Care Team (Late st Contact Info) Description 10/17/2024 Procedure Pass [address] [address] 06/06/2025 7:30 AM EST Appointment [address] [address] Chaparrita Titus MD 22 [facility], [address] [place] [address] documented as of this encounter Visit Diagnoses Not on filedocumented in this encounter Care Teams Security System Administrator Relationship Specialty Start Date End Date Chyna Soliman MD [address] [place] [address] PCP - General 04/27/17 10/16/24 Candy Mansfield PA [address] [place] [address] [place] [address] PCP - General Physician Ux Researcher 10/17/24 Chyna Soliman MD [address] [place] [address] Insurance Assigned Provider 07/29/23 01/28/24 Fallon Shrestha PA-C [address] [place] [address] Physician Ux Researcher Hematology 06/14/23 documented as of this encounter Additional Source Comments The information contained in this document represents components of the legal health record. It is not the complete legal health record.[facility]
--- OUTSIDE RECORDS SUMMARY | 2024-12-27 14:56 | XMS_ITS | Encounter Summary ---
Author Organization [facility] Address [address] [facility] [address] [place] [address] Phone Care Team Providers Care Engagement Engineer Name Role Phone Chyna Soliman MD Primary Care Provider Chyna Soliman MD Unavailable Fallon Shrestha-C Unavailable Candy Mansfield Primary Care Provide r Encounter Details Date Type Department Care Team (Latest Contact Info) Description 02/28/2019 Transcribe Orders [facility] Laboratory 30 [place] [address] Freddy Bird MD [address] [address] [email or web address] Elevated LFTs; Calculus of gallbladder without [...] st Contact Info) Description 10/17/2024 Procedure Pass [address] [address] 06/06/2025 7:30 AM EST Appointment [address] [address] Chaparrita Titus MD [address] [place] [address], [address] [place] [address] [email or web address] documented as of this encounter Procedures Procedure Name Priority Date/Time Associated Diagnosis Comments OVA AND PARASITES, STOOL Routine 02/28/2019 7:35 AM EST Elevated LFTs Calculus of gallbladder without cholecystitis without obstruction documented in this encounter Results * (ABNORMAL) Ova and parasites, stool (02/28/2019 7:35 AM EST) Special Requests None 03/05/2019 7:35 AM EST [facility] DIRECT EXAM GIARDIA LAMBLIA SEEN IN FORMALIN CONCENTRATE (A) 03/06/2019 2:54 PM EST [facility] DIRECT EXAM GIARDIA LAMBLIA SEEN IN TRICHROME STAINED SMEAR (A) 03/06/2019 2:54 PM EST [facility] Stool (Stool) 02/28/2019 7:3 5 AM EST 03/05/2019 7:37 AM EST us Freddy Bird MD MICROBIOLOGY - GENERAL ORDERA BLES Final Result [address] [address] documented in this encounter Visit Diagnoses Diagnosis Elevated LFTs Other abnormal blood chemistry Calculus of gallbladder without cholecystitis without obstruction documented in this encounter Care Teams Engagement Engineer Relationship Specialty Start Date End Date Chyna Soliman MD [address] [place] [address] PCP - General 04/27/17 10/16/24 Candy Mansfield PA [address] [place] [address] [place] [address] PCP - General Physician Construction Superintendent 10/17/24 Chyna Soliman MD [address] [place] [address] [email or web address] Insurance Assigned Provider 07/29/23 01/28/24 Fallon Shrestha PA-C [address] [place] [address] [email or web address] Physician Construction Superintendent Hematology 06/14/23 documented as of this encounter Additional Source Comments The information contained in this document represents components of the legal health record. It is not the complete legal health record.[facility]
--- OUTSIDE RECORDS SUMMARY | 2024-12-27 14:56 | XMS_ITS | Encounter Summary ---
Author Organization [facility] Address [address] [facility] [address] [place] [address] Phone Care Team Providers Care Office Clerk Assistant Name Role Phone Chyna Soliman MD Primary Care Provider Chyna Soliman MD Unavailable [phone] Fallon Shrestha-C Unavailable Candy Mansfield Primary Care Provide r Encounter Details Date Type Department Care Team (Late st Contact Info) Description 02/27/2019 Ancillary Orders Virtual Department 30 [place] [address] Toma Lowe PA [address] [place] [address] [email or web address] Epigastric pain; History of gallstones Social History [...] Contact Info) Description 10/17/2024 Procedure Pass [address] [address] 06/06/2025 7:30 AM EST Appointment [address] [address] Chaparrita Titus MD 22 [facility], [address] [place] [address] [email or web address] documented as of this encounter Results * US Abdomen Complete (02/27/2019 1:12 PM EST) Anatomical Region Laterality Modality Abdomen Ultrasound 02/27/2019 1:46 PM EST Impressions 02/27/2019 1:59 PM EST 1. Cholelithiasis similar to 04/23/2018. No evidence of acute cholecystitis or biliary ductal dilatation. 2. 7 cm x 2 cm cystic mass in the right lower quadrant laterally which appears unrelated the gallbladder not clearly related to an ovary. A hydrosalpinx or a parapelvic ovarian cyst are in the differential diagnosis. CT can be performed for further evaluation. Findings conveyed by telephone to the covering physician at [facility] in office at 1:58 PM 02/27/2019. POS -[id number] Narrative 02/27/2019 1:59 PM EST HISTORY: Epigastric pain. COMPARISON: Ultrasound 04/23/2018 FINDINGS: Biliary: Small mobile echogenic foci again demonstrated within the gallbladder lumen consistent with calculi. Gallbladder otherwise appears normal. No pericholecystic fluid. Proximal common duct normal measuring 5 mm in diameter. Liver: 6 mm cyst demonstrated within the left lobe of the liver and stable 8 mm cyst within the right lobe of the liver. Liver otherwise appears normal. Spleen: No abnormalities demonstrated. Pancreas: No abnormalities demonstrated. Kidneys: No abnormalities demonstrated. Abdominal aorta/IVC: No abnormalities of the visualized portions. Other: [place] anechoic mass with a thin septation within the right lower quadrant laterally measuring 6.9 cm x 2.1 cm x 1.8 cm. This is separate from the gallbladder. Procedure Note Vincent Little MD - 02/27/2019 HISTORY: Epigastric pain. COMPARISON: Ultrasound 04/23/2018 FINDINGS: Biliary: Small mobile echogenic foci again demonstrated within thegallbladder lumen consistent with calculi. Gallbladder otherwise appearsnormal. No pericholecystic fluid. Proximal common duct normal measuring 5mm in diameter. Liver: 6 mm cyst demonstrated within the left lobe of the liver and stable8 mm cyst within the right lobe of the liver. Liver otherwise appearsnormal. Spleen: No abnormalities demonstrated. Pancreas: No abnormalities demonstrated. Kidneys: No abnormalities demonstrated. Abdominal aorta/IVC: No abnormalities of the visualized portions. Other: [place] anechoic mass with a thin septation within the right lowerquadrant laterally measuring 6.9 cm x 2.1 cm x 1.8 cm. This is separatefrom the gallbladder. IMPRESSION: 1. Cholelithiasis similar to 04/23/2018. No evidence of acutecholecystitis or biliary ductal dilatation. 2. 7 cm x 2 cm cystic mass in the right lower quadrant laterally whichappears unrelated the gallbladder not clearly related to an ovary. Ahydrosalpinx or a parapelvic ovarian cyst are in the differentialdiagnosis. CT can be performed for further evaluation. Findings conveyed by telephone to the covering physician at [facility] in officeat 1:58 PM 02/27/2019. POS -[id number] us Toma ROSS IMG US ABDOMEN Final Result documented in this encounter Visit Diagnoses Diagnosis Epigastric pain Abdominal pain, epigastric History of gallstones Personal history of other diseases of digestive disease Epigastric pain Abdominal pain, epigastric History of gallstones Personal history of other diseases of digestive disease documented in this encounter Care Teams Office Clerk Assistant Relationship Specialty Start Date End Date Chyna Soliman MD [address] [place] [phone] [email or web address] PCP - General 04/27/17 10/16/24 Candy Mansfield PA [address] [place] [address] [place] [address] PCP - General Physician Sales Representative Business Courses 10/17/24 Chyna Soliman MD [address] [place] [phone] [email or web address] Insurance Assigned Provider 07/29/23 01/28/24 Fallon Shrestha PA-C [address] [place] [address] [email or web address] Physician Sales Representative Business Courses Hematology 06/14/23 documented as of this encounter Additional Source Comments The information contained in this document represents components of the legal health record. It is not the complete legal health record.[facility]
--- OUTSIDE RECORDS SUMMARY | 2024-12-27 14:56 | XMS_ITS | Encounter Summary ---
Author Organization [facility] Address [address] [facility] [address] [place] [address] Phone Care Team Providers Care Joint Runner Name Role Phone Chyna Soliman MD Primary Care Provider Chyna Soliman MD Unavailable Fallon Shrestha-C Unavailable Candy Mansfield Primary Care Provide r Encounter Details Date Type Department Care Team (Latest Contact Info) Description 10/14/2017 Transcribe Orders [facility] 30 [place] [address] Toma Lowe PA [address] [place] [address] [email or web address] PE (physical exam), annual (Primary Dx) Social History Tobacco Use Types [...] st Contact Info) Description 10/17/[address] [facility] 30 [place] [address] 06/06/2025 7:30 AM EST Appointment [facility], [address] [address] Chaparrita Titus MD [address] [place] [address], [address] [place] [address] [email or web address] documented as of this encounter Results * Urinalysis (10/14/2017 8:29 AM EDT) COLOR Yellow Yellow [facility] CLARITY Clear [facility] GLUCOSE Negative Negative [facility] BILI Negative Negative [facility] KETONES Negative Negative [facility] SPECIFIC GRAVITY 1.010 1.005 - 1.030 [facility] BLOOD Negative Negative [facility] PH 7.5 5.0 - 8.0 [facility] Protein-UA Negative Negative [facility] NITRITE Negative Negative [facility] Leukocyte esterase, ur Negative Negative [facility] Urine (Urine) 10/14/2017 8:2 9 AM EDT 10/14/2017 8:33 AM EDT us Toma ROSS URINE ORDERABLES Final Result Performing Organization Address City/State/[facility] Co de Phone Number [address] [address] * CBC and differential (10/14/2017 8:28 AM EDT) WBC 4.02 3.40 - 11.20 K/uL [facility] RBC 4.32 3.80 - 4.80 M/uL [facility] HGB 13.6 12.0 - 15.0 g/dL [facility] HCT 40.9 36.0 - 46.0 % [facility] PLT 160 130 - 400 K/uL [facility] MCV 94.7 79.0 - 98.0 fL [facility] MCH 31.5 27.0 - 34.8 pg [facility] MCHC 33.3 31.5 - 36.0 g/dL [facility] RDW 12.1 10.8 - 14.6 % [facility] MPV 9.8 9.4 - 12.4 fl [facility] NRBC 0.00 /100 WBCs [facility] ABSOLUTE NRBC 0.00 K/uL [facility] DIFF METHOD Auto [facility] NEUTS 48.5 45.30 - 77.70 % [facility] LYMPHS 38.3 12.30 - 39.70 % [facility] MONOS 9.2 4.10 - 12.80 % [facility] EOS 2.5 0 - 7.2 % [facility] BASOS 1.0 0 - 2.80 % [facility] Granulocytes, immature (%) 0.5 0.0 - 0.9 % [facility] ABSOLUTE NEUTS 1.95 1.40 - 7.70 K/uL [facility] ABSOLUTE LYMPHS 1.54 0.60 - 3.20 K/uL [facility] ABSOLUTE MONOS 0.37 0.11 - 0.59 K/uL [facility] ABSOLUTE EOS 0.10 0.01 - 0.50 K/uL [facility] ABSOLUTE BASOS 0.04 0.00 - 0.08 K/uL [facility] Granulocytes, immature 0.02 0.00 - 0.05 K/uL [facility] Blood 10/14/2017 8:28 AM EDT 10/14/2017 8:29 AM EDT us Toma Chrissy ROSS LAB BLOOD ORDERABLES Final Resu lt Performing Organization Address City/[facility]/ZIP Co de Phone Number [address] [address] * TSH with reflex (10/14/2017 8:28 AM EDT) TSH 1.05 0.27 - 4.20 uIU/mL [facility] Blood 10/14/2017 8:28 AM EDT 10/14/2017 8:29 AM EDT us Toma Chrissy ROSS LAB BLOOD ORDERABLES Final Resu lt [address] [address] * (ABNORMAL) Lipid panel (10/14/2017 8:28 AM EDT) HDL 147 mg/dL [facility] Comment: Interpretation: Risk Level Females Decreased >55mg/dL Average 50-55 mg/dL Increased <50 mg/dL CHOLESTEROL 233 0 - 240 mg/dL [facility] TRIGLYCERIDES 42 30 - 160 mg/dL [facility] LDL 78 50 - 129 mg/dL [facility] Comment: LDL levels in terms of risk for coronary heart disease: <100 mg/dL: Optimal 100-129 mg/dL: Near or above optimal 130-159 mg/dL: Borderline high 160-189 mg/dL: High >190 mg/dL: Very High CARDIAC RISK RATIO 1.6(L) 3.3 - 4.4 C [facility] Blood 10/14/2017 8:28 AM EDT 10/14/2017 8:29 AM EDT us Toma ROSS LAB BLOOD ORDERABLES Final Resu lt [address] [address] * Comprehensive metabolic panel (10/14/2017 8:28 AM EDT) Pathologist [facility] SODIUM 142 133 - 146 mmol/L [facility] POTASSIUM 4.2 3.3 - 5.1 mmol/L [facility] CHLORIDE 103 96 - 108 mmol/L [facility] CO2 30 21 - 35 mmol/L [facility] BUN 17 6 - 19 mg/dL [facility] CREATININE 0.90 0.5 - 1.5 mg/dL [facility] GLUCOSE 93 70 - 99 mg/dL [facility] ALBUMIN 4.2 3.9 - 4.8 g/dL [facility] TOTAL PROTEIN 6.8 6.5 - 8.0 g/dL [facility] CALCIUM 9.2 8.4 - 10.3 mg/dL [facility] ALKALINE PHOSPHATASE 53 39 - 117 U/L [facility] TOTAL BILIRUBIN 0.4 0.0 - 1.2 mg/dL [facility] AST 27 0 - 37 U/L [facility] ALT 21 0 - 40 U/L [facility] GLOBULIN 2.6 1 - 4.8 g/dL [facility] EGFR 77 >59 mL/min/1.7 3m2 [facility] Comment:If patient is black, multiply result by 1.159. Estimated glomerular filtration rate calculated using the CKD-EPI equation. ANION GAP 13 10 - 20 mmol/L [facility] Blood 10/14/2017 8:28 AM EDT 10/14/2017 8:29 AM EDT us Toma ROSS LAB BLOOD ORDERABLES Final Resu lt [facility] [address] [place] [address] documented in this encounter Visit Diagnoses Diagnosis PE (physical exam), annual- Primary documented in this encounter Care Teams Joint Runner Relationship Specialty Start Date End Date Chyna Soliman MD [address] [place] [email or web address] PCP - General 04/27/17 10/16/24 Candy Mansfield PA [address] [place] [address] [place] [address] PCP - General Physician Technical Service Engineer 10/17/24 Chyna Soliman MD [address] [place] [phone] [email or web address] Insurance Assigned Provider 07/29/23 01/28/24 Fallon Shrestha PA-C [address] [place] [phone] Physician Technical Service Engineer Hematology 06/14/23 documented as of this encounter Additional Source Comments The information contained in this document represents components of the legal health record. It is not the complete legal health record.[facility]
--- OUTSIDE RECORDS SUMMARY | 2024-12-27 14:56 | XMS_ITS | Encounter Summary ---
Author Organization [facility] Address [address] [facility] [address] [place] [address] Phone Care Team Providers Care Wire Rope Sling Maker Name Role Phone Chyna Soliman MD Primary Care Provider Chyna Soliman MD Unavailable Fallon Shrestha PA-C Unavailable [phone] Candy Mansfield Primary Care Provide r Reason for Referral * MRI/CAT Scan - Closed Specialty Diagnoses / Procedures Referred By Angie khan Referred To Contact Radiology Diagnoses Meniere's disease of left ear Acoustic neuroma Procedures MRI Brain Elizabeth Swartz MD [address] [place] [address] [place] [address] Phone: tel: fax: Referral ID Status Reason Start Date Expiration Date Visits Re quested Visits Authorized [id number] Closed 12/17/2018 01/16/2019 1 1 Encounter Details Date Type Department Care Team (Late st Contact Info) Description 12/17/2018 Ancillary Orders [facility] Department [address] [place] [address] Elizabeth Swartz MD [address] [place] [address] [address] [place] [id number] Meniere's disease of left ear; Acoustic neuroma Social History Tobacco Use Types Packs/Day Years [...] st Contact Info) Description 10/17/2024 Procedure Pass [address] [address] 06/06/2025 7:30 AM EST Appointment [address] [address] Chaparrita Titus MD [address] [place] [address], [address] [place] [address] [email or web address] documented as of this encounter Results * MRI BRAIN WITH AND WITHOUT CONTRAST (12/22/2018 1:49 PM EDT) Anatomical Region Laterality Modality Head Magnetic Resonan ce 12/22/2018 1:53 PM EDT Impressions 12/22/2018 2:15 PM EDT No intracranial hemorrhage, mass, or infarction detected. No posterior fossa lesion in particular is seen. MRI of the brain appears within normal limits. POS - [id number] Edited by: Nisha Love on 12/22/2018 2:14 PM Narrative 12/22/2018 2:15 PM EDT HISTORY: Vertigo with increasing episodes. Vestibular schwannoma. COMPARISON: None. TECHNIQUE: Exam performed on a 1.5 Shauna high-field MRI scanner. Axial T2, T2*, T2 FLAIR, diffusion-weighted imaging with ADC map, and sagittal T1 of the whole brain, thin section axial T1, and 3-D axial high resolution bright fluid through the region of the IACs, followed by post-gadolinium axial T1 of the whole brain and post-gadolinium thin section axial and coronal T1 through the region of the IACs. FINDINGS: There is no morphologic abnormality or abnormal enhancement along the proximal 7th and 8th nerve bundles. No posterior fossa lesion is identified. No intra- or extra-axial blood or fluid collection, mass, or mass effect is identified. Sulci and ventricles are within normal limits. Cerebellar tonsils are not frankly ectopic. Pituitary is not enlarged. No white matter disease. No orbital lesion identified. Paranasal sinuses clear. Mastoids free of fluid intensity. No zones of blood brain barrier breakdown. No restricted diffusion or worrisome susceptibility effects. Procedure Note Zach Nolen MD - 12/22/2018 HISTORY: Vertigo with increasing episodes. Vestibular schwannoma. COMPARISON: None. TECHNIQUE: Exam performed on a 1.5 Shauna high-field MRI scanner. Axial T2,T2*, T2 FLAIR, diffusion-weighted imaging with ADC map, and sagittal T1 ofthe whole brain, thin section axial T1, and 3-D axial high resolutionbright fluid through the region of the IACs, followed by post-gadoliniumaxial T1 of the whole brain and post-gadolinium thin section axial andcoronal T1 through the region of the IACs. FINDINGS: There is no morphologic abnormality or abnormal enhancement along theproximal 7th and 8th nerve bundles. No posterior fossa lesion isidentified. No intra- or extra- axial blood or fluid collection, mass, ormass effect is identified. Sulci and ventricles are within normal limits.Cerebellar tonsils are not frankly ectopic. Pituitary is not enlarged. Nowhite matter disease. No orbital lesion identified. Paranasal sinusesclear. Mastoids free of fluid intensity. No zones of blood brain barrierbreakdown. No restricted diffusion or worrisome susceptibility effects. IMPRESSION: No intracranial hemorrhage, mass, or infarction detected. No posteriorfossa lesion in particular is seen. MRI of the brain appears within normallimits. 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 Acoustic neuroma Benign neoplasm of cranial nerves documented in this encounter Care Teams Wire Rope Sling Maker Relationship Specialty Start Date End Date Chyna Soliman MD [address] [place] [address] PCP - General 04/27/17 10/16/24 Candy Mansfield PA [address] [place] [address] [place] [address] PCP - General Physician Cardiology Nurse Practitioner 10/17/24 Chyna Soliman MD [address] [place] [phone] Insurance Assigned Provider 07/29/23 01/28/24 Fallon Shrestha PA-C [address] [place] [phone] Physician Cardiology Nurse Practitioner Hematology 06/14/23 documented as of this encounter Additional Source Comments The information contained in this document represents components of the legal health record. It is not the complete legal health record.[facility]
--- OUTSIDE RECORDS SUMMARY | 2024-12-27 14:56 | XMS_ITS | Encounter Summary ---
Author Organization [facility] Address [facility] [employer] [facility] [address] [place] [address] Phone Care Team Providers Care Locate Technician Name Role Phone Chyna Soliman MD Primary Care Provider Chyna Soliman MD Unavailable Fallon Shrestha-C Unavailable [phone] Candy Mansfield Primary Care Provide r Encounter Details Date Type Department Care Team (Latest Contact Info) Description 05/23/2020 Transcribe Orders [facility] Laboratory [address] [place] [address] Toma Lowe PA [address] [place] [address] .[place] Routine general medical examination at a health care facility (Primary Dx); Fatigue, unspecified type Social History Tobacco Use Types Packs/Day Years [...] st Contact Info) Description 10/17/2024 Procedure Pass [address] [address] 06/06/2025 7:30 AM EST Appointment [address] [address] Chaparrita Titus MD [address] [place] [address], [address] [place] [address] [email or web address] documented as of this encounter Results * (ABNORMAL) CBC and differential (05/23/2020 9:28 AM EST) WBC 3.90(L) 4.00 - 11.00 K/uL [facility] Comment:Note Reference Range updates to all CBC and Differential results. RBC 4.25 3.72 - 5.30 M/uL [facility] HGB 13.4 10.6 - 15.5 g/dL [facility] Comment:Note updated Referen ce Ranges for all CBC and Differential results. HCT 39.0 32.0 - 45.0 % [facility] PLT 176 140 - 430 K/uL [facility] MCV 91.8 78.0 - 97.0 [facility] MCH 31.5 25.0 - 33.0 pg [facility] MCHC 34.4 32.0 - 36.0 g/dL [facility] RDW 12.1 11.0 - 16.0 % [facility] MPV 9.8 8.4 - 12.8 [facility] NRBC 0.00 0 /100 WBCs [facility] ABSOLUTE NRBC 0.00 0 K/uL [facility] DIFF METHOD Auto [facility] NEUTS 38.8(L) 43.0 - 75.0 % [facility] LYMPHS 51.5(H) 18.2 - 47.4 % [facility] MONOS 7.9 4.00 - 11.00 % [facility] EOS 1.0 0.0 - 8.0 % [facility] BASOS 0.5 0.0 - 2.0 % [facility] Granulocytes, immature (%) 0.3 0.0 - 0.9 % [facility] ABSOLUTE NEUTS 1.51(L) 1.80 - 7.70 K/uL [facility] ABSOLUTE LYMPHS 2.01 1.00 - 3.10 K/uL [facility] ABSOLUTE MONOS 0.31 0.20 - 0.80 K/uL [facility] ABSOLUTE EOS 0.04 0.00 - 0.80 K/uL [facility] ABSOLUTE BASOS 0.02 0.00 - 0.09 K/uL [facility] Granulocytes, immature 0.01 0.00 - 0.05 K/uL [facility] Blood 05/23/2020 9:28 AM EST 05/23/2020 9:30 AM EST Toma ROSS LAB BLOOD ORDERABLES Final Resu lt Performing Organization Address City/[facility]/ZIP Co de Phone Number [address] [address] * TSH with reflex (05/23/2020 9:28 AM EST) TSH 2.08 0.27 - 4.20 uIU/mL [facility] Blood 05/23/2020 9:28 AM EST 05/23/2020 9:30 AM EST Toma ROSS LAB BLOOD ORDERABLES Final Resu lt Performing Organization Address City/[facility]/ZIP Co de Phone Number [address] [address] * Comprehensive metabolic panel (05/23/2020 9:28 AM EST) SODIUM 140 133 - 146 mmol/L [facility] POTASSIUM 3.8 3.3 - 5.1 mmol/L [facility] CHLORIDE 102 96 - 108 mmol/L [facility] CO2 28 21 - 35 mmol/L [facility] BUN 13 6 - 19 mg/dL [facility] CREATININE 0.90 0.5 - 1.5 mg/dL [facility] GLUCOSE 96 70 - 99 mg/dL [facility] ALBUMIN 4.7 3.9 - 4.8 g/dL [facility] TOTAL PROTEIN 7.5 6.5 - 8.0 g/dL [facility] CALCIUM 10.3 8.4 - 10.3 mg/dL [facility] ALKALINE PHOSPHATASE 59 39 - 117 U/L [facility] TOTAL BILIRUBIN 0.5 0.0 - 1.2 mg/dL [facility] AST 26 0 - 37 U/L [facility] ALT 17 0 - 40 U/L [facility] GLOBULIN 2.8 1 - 4.8 g/dL [facility] EGFR 76 >59 mL/min/1.7 3m2 [facility] Comment:Estimated glomerular filtration rate calculated using the CKD-EPI equation. ANION GAP 14 10 - 20 mmol/L [facility] Blood 05/23/2020 9:28 AM EST 05/23/2020 9:30 AM EST us Toma ROSS LAB BLOOD ORDERABLES Final Resu lt Performing Organization Address City/State/[facility] Co de Phone Number [address] [address] documented in this encounter Visit Diagnoses Diagnosis Routine general medical examination at a health care facility- Primary Fatigue, unspecified type documented in this encounter Care Teams Locate Technician Relationship Specialty Start Date End Date Chyna Soliman MD [address] [place] [address] [email or web address] PCP - General 04/27/17 10/16/24 Candy Mansfield PA [address] [place] [address] [place] [address] PCP - General Physician Dye Machine Operator 10/17/24 Chyna Soliman MD [address] [place] [address] [email or web address] Insurance Assigned Provider 07/29/23 01/28/24 Fallon Shrestha PA-C [address] [place] [id number] [email or web address] Physician Dye Machine Operator Hematology 06/14/23 documented as of this encounter Additional Source Comments The information contained in this document represents components of the legal health record. It is not the complete legal health record.[facility]
--- OUTSIDE RECORDS SUMMARY | 2024-12-27 14:56 | XMS_ITS | Encounter Summary ---
Author Organization [facility] Address [address] [facility] ([place], [place]) [address] [place] [address] Phone Care Team Providers Care Night Warehouse Manager Name Role Phone Chyna Soliman MD Primary Care Provider [phone] Chyna Soliman MD Unavailable Fallon Shrestha-C Unavailable [phone] Candy Mansfield Primary Care Provide r Encounter Details Date Type Department Care Team (Late st Contact Info) Description 02/27/2019 Ancillary Orders Virtual Department 30 [place] [address] Toma Lowe PA [address] [place] [address] [email or web address] Epigastric pain; History of gallstones Social History [...] st Contact Info) Description 10/17/2024 Procedure Pass [address] [address] 06/06/2025 7:30 AM EST Appointment [address] [address] Chaparrita Titus MD 22 [facility], [address] [place] [address] documented as of this encounter Visit Diagnoses Diagnosis Epigastric pain Abdominal pain, epigastric History of gallstones Personal history of other diseases of digestive disease documented in this encounter Care Teams Night Warehouse Manager Relationship Specialty Start Date End Date Chyna Soliman MD [address] [place] [address] PCP - General 04/27/17 10/16/24 Candy Mansfield PA [address] [place] [address] PCP - General Physician Camp Nurse 10/17/24 Chyna Soliman MD [address] [place] [phone] [email or web address] Insurance Assigned Provider 07/29/23 01/28/24 Fallon Shrestha PA-C [address] [place] [address] Physician Camp Nurse Hematology 06/14/23 documented as of this encounter Additional Source Comments The information contained in this document represents components of the legal health record. It is not the complete legal health record.[facility]
--- OUTSIDE RECORDS SUMMARY | 2024-12-27 14:56 | XMS_ITS | Encounter Summary ---
Author Organization [facility] Address [address] [employer] [facility] [address] [place] [address] Phone Care Team Providers Care Boss Miner Name Role Phone Chyna Soliman MD Primary Care Provider Chyna Soliman MD Unavailable Fallon Shrestha-C Unavailable Candy Mansfield Primary Care Provide r Encounter Details Date Type Department Care Team (Latest Contact Info) Description 04/20/2021 Transcribe Orders Virtual Department 30 [place] [address] Toma Lowe PA [address] [place] [address] [email or web address] Breast screening (Primary Dx) Social History Tobacco [...] st Contact Info) Description 10/17/2024 Procedure Pass [address] [address] 06/06/2025 7:30 AM EST Appointment [address] [address] Chaparrita Titus MD 22 [facility], [address] [place] [address] [email or web address] documented as of this encounter Results * BI MAMMOGRAM SCREENING WITH TOMOSYNTHESIS WITH CAD (BILATERAL) (06/03/2021 4:13 PM EST) Anatomical Region Laterality Modality Breast Left, Breast Right, Breast Bilateral Bila teral Mammography 06/03/2021 4:25 PM EST Impressions 06/03/2021 4:28 PM EST BILATERAL BREASTS: Negative, no evidence of malignancy. Normal interval follow- up is recommended in 12 months. Bi-RADS: BI-RADS CATEGORY: 1 - Negative. DENSITY: There are scattered fibroglandular densities. Narrative 06/03/2021 4:28 PM EST STUDY: Bilateral screening mammography with tomosynthesis and CAD TECHNIQUE: Bilateral full-field digital screening mammography is obtained and read in conjunction with computer-aided detection. Tomosynthesis as well as 2-D C view imaging were obtained. COMPARISON: Comparison made to multiple prior, most recent December 06, 2019, and most remote January 09, 2016. BREAST COMPOSITION: There are scattered areas of fibroglandular density BILATERAL BREASTS: No significant masses, suspicious calcifications or other abnormalities are seen. Procedure Note Kary Saleem MD - 06/03/2021 STUDY: Bilateral screening mammography with tomosynthesis and CAD TECHNIQUE: Bilateral full-field digital screening mammography is obtainedand read in conjunction with computer-aided detection. Tomosynthesis aswell as 2-D C view imaging were obtained. COMPARISON: Comparison made to multiple prior, most recent November, and most remote January 09, 2016. BREAST COMPOSITION: There are scattered areas of fibroglandulardensity BILATERAL BREASTS: No significant masses, suspicious calcifications orother abnormalities are seen. IMPRESSION: BILATERAL BREASTS: Negative, no evidence of malignancy. Normal intervalfollow-up is recommended in 12 months. Bi-RADS: BI-RADS CATEGORY: 1 - Negative. DENSITY: There are scattered fibroglandular densities. Toma ROSS IMG MG EXAMS Final Result documented in this encounter Visit Diagnoses Diagnosis Breast screening- Primary Breast screening, unspecified Breast screening Breast screening, unspecified documented in this encounter Care Teams Boss Miner Relationship Specialty Start Date End Date Chyna Soliman MD [address] [place] [phone] [email or web address] PCP - General 04/27/17 10/16/24 Candy Mansfield PA [address] [place] [address] [address] PCP - General Physician Interventional Technologist 10/17/24 Chyna Soliman MD [address] [place] [address] Insurance Assigned Provider 07/29/23 01/28/24 Fallon Shrestha PA-C [address] [place] [phone] [email or web address] Physician Interventional Technologist Hematology 06/14/23 documented as of this encounter Additional Source Comments The information contained in this document represents components of the legal health record. It is not the complete legal health record.[facility]
--- OUTSIDE RECORDS SUMMARY | 2024-12-27 14:56 | XMS_ITS | Encounter Summary ---
Author Organization [facility] Address [address] [place] [address] Phone Care Team Providers Care Data Reviewer Name Role Phone Chyna Soliman MD Primary Care Provider [phone] Chyna Soliman MD Unavailable [phone] Fallon ShresthaC Unavailable [phone] Candy Mansfield Primary Care Provide r Encounter Details Date Type Department Care Team (Late st Contact Info) Description 08/10/2023 Procedure Pass Echo [facility] [place] [place] [id number] Social History Tobacco Use Types Packs/Day Years [...] EST Sexual Orientation Lesbian or John 11/10/2019 1 :30 PM EDT documented as of this encounter Plan of Treatment Upcoming Encounters Date Type Department Care Team (Late st Contact Info) Description 10/17/2024 Procedure Pass [address] [address] 06/06/2025 7:30 AM EST Appointment [address] [address] Chaparrita Titus MD 22 [facility], [address] [place] [address] documented as of this encounter Visit Diagnoses Not on filedocumented in this encounter Care Teams Data Reviewer Relationship Specialty Start Date End Date Chyna Soliman MD [address] [place] [address] PCP - General 04/27/17 10/16/24 Candy Mansfield PA [address] [place] [address] Dr Tamayo [address] [place] [address] PCP - General Physician Powder Mill Operator 10/17/24 Chyna Soliman MD [address] [place] [address] Insurance Assigned Provider 07/29/23 01/28/24 Fallon Shrestha PA-C [address] [place] [phone] [email or web address] Physician Powder Mill Operator Hematology 06/14/23 documented as of this encounter Additional Source Comments The information contained in this document represents components of the legal health record. It is not the complete legal health record.[facility]
--- OUTSIDE RECORDS SUMMARY | 2024-12-27 14:56 | XMS_ITS | Encounter Summary ---
Author Organization [facility] Address [address] [place] [address] Phone Care Team Providers Care Hardwood Finisher Name Role Phone Chyna Soliman MD Primary Care Provider Chyna Soliman MD Unavailable [phone] Fallon Shrestha PA-C Unavailable [phone] Candy Mansfield Primary Care Provide r Encounter Details Date Type Department Care Team (Late st Contact Info) Description 10/21/2021 Procedure Pass [address] [address] Social History Tobacco Use Types Packs/Day Years [...] st Contact Info) Description 10/17/2024 Procedure Pass [address] [address] 06/06/2025 7:30 AM EST Appointment [facility] [address] [place] [address] Chaparrita Titus MD 22 [facility], [address] [place] [address] documented as of this encounter Visit Diagnoses Not on filedocumented in this encounter Care Teams Hardwood Finisher Relationship Specialty Start Date End Date Chyna Soliman MD [address] [place] [phone] [email or web address] PCP - General 04/27/17 10/16/24 Candy Mansfield PA [address] [place] [address] PCP - General Physician Skeiner 10/17/24 Chyna Soliman MD [address] [place] [address] Insurance Assigned Provider 07/29/23 01/28/24 Fallon Shrestha PA-C [address] [place] [phone] [email or web address] Physician Skeiner Hematology 06/14/23 documented as of this encounter Additional Source Comments The information contained in this document represents components of the legal health record. It is not the complete legal health record.[facility]
--- OUTSIDE RECORDS SUMMARY | 2024-12-27 14:56 | XMS_ITS | Encounter Summary ---
Author Organization [facility] Address [address] [employer] [facility] [address] [place] [address] Phone Care Team Providers Care Dealer Compliance Representative Name Role Phone Chyna Soliman MD Primary Care Provider Chyna Soliman MD Unavailable Fallon [place] PA-C Unavailable [phone] Candy Mansfield Primary Care Provide r Encounter Details Date Type Department Care Team (Latest Contact Info) Description 05/24/2018 Transcribe Orders [facility] Laboratory [address] [address] Brisa Fitzgerald PA-C [address], [address] [place] [address] Abdominal pain, epigastric (Primary Dx); Elevated LFTs Social History Tobacco Use Types Packs/Day Years [...] st Contact Info) Description 10/17/2024 Procedure Pass [address] [address] 06/06/2025 7:30 AM EST Appointment [address] [address] Chaparrita Titus MD [address] [place] [address], [address] [place] [address] [email or web address] documented as of this encounter Results * C-Reactive Protein (05/24/2018 2:15 PM EST) Pathologist [facility] C REACTIVE PROTEIN <0.3 0.0 - 4.0 mg/L [facility] Blood 05/24/2018 2:15 PM EST 05/24/2018 2:20 PM EST us Brisa Fitzgerald PA-C LAB BLOOD ORDERABLES Final Resu lt [facility] [address] [place] [address] * (ABNORMAL) Comprehensive metabolic panel (05/24/2018 2:15 PM EST) Pathologist [facility] SODIUM 144 133 - 146 mmol/L [facility] POTASSIUM 4.0 3.3 - 5.1 mmol/L [facility] CHLORIDE 103 96 - 108 mmol/L [facility] CO2 28 21 - 35 mmol/L [facility] BUN 24(H) 6 - 19 mg/dL [facility] CREATININE 0.90 0.5 - 1.5 mg/dL [facility] GLUCOSE 100(H) 70 - 99 mg/dL [facility] ALBUMIN 4.6 3.9 - 4.8 g/dL [facility] TOTAL PROTEIN 7.1 6.5 - 8.0 g/dL [facility] CALCIUM 10.0 8.4 - 10.3 mg/dL [facility] ALKALINE PHOSPHATASE 53 39 - 117 U/L [facility] TOTAL BILIRUBIN 0.4 0.0 - 1.2 mg/dL [facility] AST 33 0 - 37 U/L [facility] ALT 34 0 - 40 U/L [facility] GLOBULIN 2.5 1 - 4.8 g/dL [facility] EGFR 77 >59 mL/min/1.7 3m2 [facility] Comment:If patient is black, multiply result by 1.159. Estimated glomerular filtration rate calculated using the CKD-EPI equation. ANION GAP 17 10 - 20 mmol/L [facility] Blood 05/24/2018 2:15 PM EST 05/24/2018 2:20 PM EST Brisa Fitzgearld PA-C LAB BLOOD ORDERABLES Final Resu lt Performing Organization Address City/[facility]/ZIP Co de Phone Number [address] [address] * (ABNORMAL) CBC (05/24/2018 2:15 PM EST) WBC 4.67 3.40 - 11.20 K/uL [facility] RBC 4.13 3.80 - 4.80 M/uL [facility] HGB 13.0 12.0 - 15.0 g/dL [facility] HCT 38.3 36.0 - 46.0 % [facility] PLT 182 130 - 400 K/uL [facility] MCV 92.7 79.0 - 98.0 fL [facility] MCH 31.5 27.0 - 34.8 pg [facility] MCHC 33.9 31.5 - 36.0 g/dL [facility] RDW 11.9 10.8 - 14.6 % [facility] MPV 9.3(L) 9.4 - 12.4 fl [facility] NRBC 0.00 0.00 /100 WBCs [facility] ABSOLUTE NRBC 0.00 0.00 K/uL [facility] Blood 05/24/2018 2:15 PM EST 05/24/2018 2:20 PM EST us Brisa Fitzgerald PA-C LAB BLOOD ORDERABLES Final Resu lt [address] [address] * Immunoglobulin A (05/24/2018 2:15 PM EST) IgA 80 70 - 400 mg/dL [facility] Blood 05/24/2018 2:15 PM EST 05/24/2018 2:20 PM EST us Brisa Fitzgerald PA-C LAB BLOOD ORDERABLES Final Resu lt Performing Organization Address City/[facility]/ZIP Co de Phone Number [address] [address] * Tissue transglutaminase IgA (05/24/2018 2:15 PM EST) TTG IGA ANTIBODY <1.2 <4.0 (Negative) U/mL [facility] Blood 05/24/2018 2:15 PM EST 05/24/2018 2:20 PM EST us Brisa Fitzgerald PA-C LAB BLOOD ORDERABLES Final Resu lt Performing Organization Address City/[facility]/ZIP Co de Phone Number [facility] LAB MED[facility] [address] [place] [address] documented in this encounter Visit Diagnoses Diagnosis Abdominal pain, epigastric- Primary Elevated LFTs Other abnormal blood chemistry documented in this encounter Care Teams Dealer Compliance Representative Relationship Specialty Start Date End Date Chyna Soliman MD [address] [place] [address] [email or web address] PCP - General 04/27/17 10/16/24 Candy Mansfield PA [address] [place] [address] [place] [address] PCP - General Physician Rim Technician 10/17/24 Chyna Soliman MD [address] [place] [address] [email or web address] Insurance Assigned Provider 07/29/23 01/28/24 Fallon Shrestha PA-C [address] [place] [address] [email or web address] Physician Rim Technician Hematology 06/14/23 documented as of this encounter Additional Source Comments The information contained in this document represents components of the legal health record. It is not the complete legal health record.[facility]
--- OUTSIDE RECORDS SUMMARY | 2024-12-27 14:56 | XMS_ITS | Encounter Summary ---
Author Organization [facility] Address [address] [employer] [facility] [address] [place] [address] Phone Care Team Providers Care Chief Marketing Officer Name Role Phone Chyna Soliman MD Primary Care Provider [phone] Chyna Soliman MD Unavailable [phone] Fallon Shrestha PA-C Unavailable [phone] Candy Mansfield Primary Care Provide r Reason for Referral * MRI/CAT Scan - Closed Specialty Diagnoses / Procedures Referred By Contbraxton t Referred To Contact Radiology Diagnoses Lumbar radiculopathy Weakness Procedures MRI Lumbar Spine CHG MRI, LUMBAR SPINE CHG MRI, LUMBAR SPINE CONTRAST CHG MRI, LUMBAR SPINE COMBO Chyna Soliman MD Phone: tel: fax: mailto: [address] [address] Phone: tel: Referral ID Status Reason Start Date Expiration Date Visits Re quested Visits Authorized [id number] Closed 12/14/2020 01/13/2021 1 1 Encounter Details Date Type Department Care Team (Latest Contact Info) Description 11/24/2020 Transcribe Orders [facility] Department [address] [place] [address] Toma Lowe PA [address] [place] [address] [email or web address] Lumbar radiculopathy (Primary Dx); Weakness Social History Tobacco Use Types Packs/Day Years [...] st Contact Info) Description 10/17/2024 Procedure Pass [address] [address] 06/06/2025 7:30 AM EST Appointment [address] [address] Chaparrita Titus MD [address] [place] [address], [address] [place] [address] [email or web address] documented as of this encounter Results * MRI LUMBAR SPINE (BONE) WITHOUT CONTRAST (12/14/2020 7:21 AM EDT) Anatomical Region Laterality Modality L-spine Magnetic Resonan ce 12/14/2020 8:16 AM EDT Impressions 12/14/2020 8:27 AM EDT No significant changes from 12/23/2010. POS - [id number] Narrative 12/14/2020 8:27 AM EDT HISTORY: Left lower back pain radiating to left leg, numbness in left leg. COMPARISON: MRI lumbar spine 12/23/2010. TECHNIQUE: Exam performed on a 1.5 Shauna high-field MRI scanner. Sagittal T1, T2 and STIR, axial T1 and T2 sequences were obtained. FINDINGS: Conus medullaris: Normal. L1-L2: No significant abnormalities. L2-L3: No significant abnormalities. L3-L4: Similar loss of T2 signal within the disc. Minimal disc space narrowing. Stable small central disc bulge and annular tear. Mild bilateral facet arthropathy. No central canal stenosis. No significant neural foraminal narrowing. L4-L5: Disc height well-maintained. Minimal loss of T2 signal within the disc. Small left lateral disc protrusion and annular tear is essentially stable. Similar mild-moderate narrowing of the proximal aspects of the neuroforamina, slightly more on left than right, by disc-osteophyte complexes. Mild-moderate bilateral facet arthropathy. No central canal stenosis. L5-S1: Loss of T2 signal within the disc. Similar mild disc space narrowing. Minimal degenerative endplate changes. Tiny broad-based disc-osteophyte complex. No central canal stenosis. Mild-moderate bilateral facet arthropathy. Minimal neuroforaminal narrowing. Soft tissues: No evidence of paravertebral masses. Vertebral bodies: No compression fractures or subluxations. Marrow signal: No suspicious marrow signal abnormalities. Procedure Note Vincent Ziegler MD - 12/14/2020 HISTORY: Left lower back pain radiating to left leg, numbness in leftleg. COMPARISON: MRI lumbar spine 12/23/2010. TECHNIQUE: Exam performed on a 1.5 Shauna high-field MRI scanner. SagittalT1, T2 and STIR, axial T1 and T2 sequences were obtained. FINDINGS: Conus medullaris: Normal. L1-L2: No significant abnormalities. L2-L3: No significant abnormalities. L3-L4: Similar loss of T2 signal within the disc. Minimal disc spacenarrowing. Stable small central disc bulge and annular tear. Mildbilateral facet arthropathy. No central canal stenosis. No significantneural foraminal narrowing. L4-L5: Disc height well-maintained. Minimal loss of T2 signal within thedisc. Small left lateral disc protrusion and annular tear is essentiallystable. Similar mild-moderate narrowing of the proximal aspects of theneuroforamina, slightly more on left than right, by disc-osteophytecomplexes. Mild-moderate bilateral facet arthropathy. No central canalstenosis. L5-S1: Loss of T2 signal within the disc. Similar mild disc spacenarrowing. Minimal degenerative endplate changes. Tiny mvuun-zjdecvwrw-hnbljidthj complex. No central canal stenosis. Mild-moderatebilateral facet arthropathy. Minimal neuroforaminal narrowing. Soft tissues: No evidence of paravertebral masses. Vertebral bodies: No compression fractures or subluxations. Marrow signal: No suspicious marrow signal abnormalities. IMPRESSION: No significant changes from 12/23/2010. POS - [id number] Chyna Soliman MD IMG MR XSPECIALTY Final Res ult documented in this encounter Visit Diagnoses Diagnosis Lumbar radiculopathy- Primary Thoracic or lumbosacral neuritis or radiculitis, unspecified Weakness Other malaise and fatigue Lumbar radiculopathy Thoracic or lumbosacral neuritis or radiculitis, unspecified Weakness Other malaise and fatigue documented in this encounter Care Teams Chief Marketing Officer Relationship Specialty Start Date End Date Chyna Soliman MD [address] [place] [address] [email or web address] PCP - General 04/27/17 10/16/24 Candy Mansfield PA [address] [place] [address] PCP - General Physician Sales Training Representative 10/17/24 Chyna Soliman MD [address] [place] [id number] [email or web address] Insurance Assigned Provider 07/29/23 01/28/24 Fallon Shrestha PA-C [address] [place] [phone] [email or web address] Physician Sales Training Representative Hematology 06/14/23 documented as of this encounter Additional Source Comments The information contained in this document represents components of the legal health record. It is not the complete legal health record.[facility]
--- OUTSIDE RECORDS SUMMARY | 2024-12-27 14:56 | XMS_ITS | Clinical Summary ---
Author Organization [facility] Address [address] [place] [address] Phone Care Team Providers Care Cyberathlete Name Role Phone Fallon Shrestha PA-C Unavailable [phone] Candy Mansfield Primary Care Provide r Allergies No known active allergies Medications therapeutic multivitamin tablet Take 1 tablet by mouth daily. Active Lactobacillus acidophilus (PROBIOTIC ORAL) Take 1 capsule by mouth daily. Active Active Problems No known active problems Encounters Date Type Department Care Team Description 10/17/2024 8:00 AM EDT Office Visit [facility] [address] [place] [address] [place] [address] Chaparrita Titus MD Routine gynecological examination (Primary Dx); Encounter for screening mammogram for malignant neoplasm of breast; Screening for cervical cancer from Last 3 Months Immunizations Immunization Administration Dates Next Due INFLUENZA, SPLIT VIRUS, TRIVALENT W/ PRESERVATIV E IM 02/18/2010 Influenza Quadrivalent MDCK Preservative Free IM 01/05/2022 Influenza Quadrivalent Preservative Free IM 04/2020 Family History Medical History Relation Comments Breast cancer Paternal Aunt Relation Status Comments Paternal Aunt Social History Tobacco Use Types Packs/Day Years [...] or John 11/10/2019 1: 30 PM EDT Last Filed Vital Signs Vital Sign Reading Time Taken Comments Blood Pressure 90/58 10/17/2024 7:58 AM EDT Pulse 58 02/22/2022 1:28 PM EDT Temperature 35.9 C (96.6 F) 02/22/2022 1:14 PM EDT Respiratory Rate 16 02/22/2022 1:28 PM EDT Oxygen Saturation 100% 02/22/2022 12:27 PM EDT Inhaled Oxygen Concentration - - Weight 72.6 kg (160 lb) 02/18/2022 2:51 PM EDT Height 182.9 cm (6') 02/18/2022 2:51 PM EDT Body Mass Index 21.7 02/18/2022 2:51 PM EDT Plan of Treatment Upcoming Encounters Date Type Department Care Team (Late st Contact Info) Description 10/17/2024 Procedure Pass [address] [address] 06/06/2025 7:30 AM EST Appointment [address] [address] Chaparrita Titus MD [address] [place] [address], [address] [place] [address] [email or web address] Health Maintenance Due Date Last Done Comments Adult Td,Tdap Booster 1972 DEPRESSION SCREENING 1984 HEPATITIS C SCREENING 1990 HIV ONE-TIME SCREENING (18-65 YEARS) 1990 COLOGUARD 2017 FIT TEST 2017 FOBT 2017 SIGMOIDOSCOPY 2017 VIRTUAL COLONOSCOPY 2017 PNEUMOCOCCAL VACCINES (50+ years) (1 of 1 - PCV) 2022 ZOSTER VACCINES (1 of 2) 2022 INFLUENZA VACCINE (#1) 2024 , 12/27/2022, 01/05/2022, Additional history exists MAMMOGRAM 11/07/2025 11/08/2023, 05/25, 12/06/2019, Additional history exists PAP SMEAR 10/18/2027 10/17/2024 LIPID PANEL 03/25/2028 03/25/2023, 05/2022, 10/14/2017 COLONOSCOPY 02/23/2032 02/22/2022 COLORECTAL CANCER SCREENING 02/23/2032 COVID-19 VACCINE Completed 01/03/2024, 12/2022, 01/05/2022, Additional history exists SMOKING STATUS SCREENING (Once After 26 Yrs) Completed 10/17/2024 HEPATITIS A VACCINES Aged Out No long er eligible based on patient's age to complete this topic HIB VACCINES Aged Out No longer eligi ble based on patient's age to complete this topic MENINGOCOCCAL VACCINES (ACWY) Aged Out No longer eligible based on patient's age to complete this topic MENINGOCOCCAL VACCINES (B) Aged Out N o longer eligible based on patient's age to complete this topic Medical Devices Not on file Procedures Procedure Name Priority Date/Time Associated Diagnosis Comments PAP TEST Routine 10/17/2024 12:00 AM EDT BI MAMMOGRAM SCREENING WITH TOMOSYNTHESIS WITH CAD (BILATERAL) Routine 11/08/2023 7:44 AM EDT Breast screening LIPID PANEL Routine 03/25/2023 8:22 AM EST Routine general medical examination at a health care facility ENDOSCOPY, COLON 02/22/2022 12:3 2 PM EDT from Last 3 Months or Most Recently Relevant to Health Maintenance Results * Pap Test (10/17/2024 12:00 AM EDT) 10/17/2024 10/18/2024 9:5 7 AM EDT Narrative SEE NARRATIVE - 10/24/2024 3:10 PM EDT [address] [address] Porcelain Enameler: Darrian Doe MD PACKAGE LINE OPERATOR Cytology Report FINAL DIAGNOSIS A. PAP SMEAR (THIN PREP) CE: SPECIMEN ADEQUACY: Satisfactory for evaluation; transformation zone present. INTERPRETATION: NEGATIVE FOR INTRAEPITHELIAL LESION OR MALIGNANCY. Atrophy. This specimen was analyzed by the automated ThinPrep Imaging System ([employer] and the selected nicholas were reviewed by a flight paramedic. Electronically Signed Out By: ROBINSON Cornejo(ASCP) The Pap test is a screening test primarily for squamous cancers and precursors and has associated false-negative and false-positive results. New technologies such as liquid-based preparations may decrease but will not eliminate all false-negative results. Regular sampling and follow-up of unexplained clinical signs and symptoms are recommended to minimize false negative results. PROCEDURES/ADDENDA HPV Testing (Requested) Ordered Date: 10/18/2024 A. PAP SMEAR (THIN PREP) CE: High-risk HPV Panel w/ extended genotyping NEG HPV 16-NEG HPV 18-NEG HPV 45-NEG HPV 33/58-NEG HPV 31-NEG HPV 56/59/66-NEG HPV 51-NEG HPV 52-NEG HPV 35/39/68-NEG Performed by real-time polymerase chain reaction (PCR) at [facility], [address] [place] [address] using the FDA-approved BD Onclarity HPV Assay with extended genotyping. Uses of the assay in scenarios other than those approved by the FDA should be considered off-label use. The accuracy and precision of this test for all other off-label specimen sources has been verified in the Cytopathology Laboratory of the [facility] and has not been cleared or approved by the U.S. Food and Drug Administration. Clinical correlation is advised. The assay assesses the E6/E7 DNA target and utilizes human beta globin as an internal control. Cytology and HPV testing are screening assays and should not be used as the sole means of detecting cancer. False-positives and false-negatives can occur. CLINICAL HISTORY Date of Last Menstrual Period: Not Provided Menstrual History: Post Menopausal Other Clinical Conditions: Screening Pap SPECIMEN SOURCE A: PAP SMEAR (THIN PREP) CE Patient Name: ZAHRA SHERWOOD : 1970 (Age: 54) Sex: F Institution: [facility] Location: [facility] Date of Collection: 10/17/2024 Date of Reported: 10/24/2024 15:10 Results to: Chaparrita Titus MD us Chaparrita Titus MD CYTOLOGY ORDERABLES Final Resu lt SEE NARRATIVE * BI MAMMOGRAM SCREENING WITH TOMOSYNTHESIS WITH [...] be notified of the results and recommendations. us Chyna Ruelas MD IMG MG EXAMS Final Resul t * (ABNORMAL) Lipid panel (03/25/2023 8:22 AM EST) HDL 126 mg/dL [facility] Comment: Interpretation <40 mg/dL: Low HDL cholesterol (major risk factor for CHD) Greater than or equal to 60 mg/dL: High HDL cholesterol ( negative risk factor for CHD) HDL - cholesterol is affected by a number of factors, e.g. smoking, excerise, hormones, sex and age. CHOLESTEROL 245(H) 0 - 240 mg/dL [facility] TRIGLYCERIDES 44 30 - 160 mg/dL [facility] LDL 110 50 - 129 mg/dL [facility] Comment: LDL levels in terms of risk for coronary heart disease: <100 mg/dL: Optimal 100-129 mg/dL: Near or above optimal 130-159 mg/dL: Borderline high 160-189 mg/dL: High >190 mg/dL: Very High CARDIAC RISK RATIO 1.9(L) 3.3 - 4.4 C [facility] Blood 03/25/2023 8:2 2 AM EST 03/25/2023 8:24 AM EST us Toma [facility] BLOOD ORDERABLES Final Resu lt [facility] [address] [place] [address] * ENDOSCOPY, COLON (02/22/2022 12:32 PM EDT) Narrative Transcriptions Omar Bird MD - 02/22/2022 12:32 PM EDT Patient Name: Zahra Sernalman Attending MD:: OMAR BIRD MD Procedure Date: 02/22/2022 12:32 PM Date of : 1970 Age: 51 Admit Type: Outpatient Gender: Female Room: [place] [address] Referring MD: CHYNA RUELAS MD Exam Type: Colonoscopy Indications: Screening for colorectal malignant neoplasm, Incidental change in bowel habits noted Medications: Monitored Anesthesia Care Procedure: Informed consent was obtained from the patientafter discussion of the indications, limitations, alternatives, benefits, and risks of the procedure. Risks specifically discussed include but are not limited to medication reactions, missed lesions, bleeding, perforation, or the need for emergent surgery. Throughout the procedure, the patient's blood pressure, pulse, end-tidal CO2, and oxygensaturations were monitored continuously. The Olympus adult variable colonoscope [id number] #6 was introduced through the anus and advanced to the terminal ileum, with identification of theappendiceal orifice and IC valve. The colonoscopy was performed without difficulty. The patient tolerated the procedure well. The quality of the bowelpreparation was good. The terminal ileum, ileocecal valve, appendiceal orifice, and rectum werephotographed. Complications: No immediate complications. Estimated blood loss:None. Findings: The terminal ileum appeared normal. Examination of the right colon was repeated in retroflexion and again in NBI. Retroflexion wasalso performed in the rectum. A 4 mm polyp was found in the ascending colon. The polyp was sessile. The polyp was removed with acold snare. Resection and retrieval were complete. A 5 mm polyp was found in the descending colon. The polyp was hyperplastic. The polyp was removed witha cold snare. Resection and retrieval werecomplete. The exam was otherwise without abnormality. Impression: - The examined portion of the ileum was normal. - One 4 mm polyp in the ascending colon, removedwith a cold snare. Resected and retrieved. - One 5 mm polyp in the descending colon, removedwith a cold snare. Resected and retrieved. - The examination was otherwise normal. Recommendation: - Patient has a contact number available for emergencies. The signs and symptoms of potential delayed complications were discussed with thepatient. Return to normal activities tomorrow. Written discharge instructions were provided to thepatient. - Await pathology results. - Repeat colonoscopy for surveillance based on pathology results. Omar Bird OMAR BIRD MD 02/22/2022 1:21:55 PM This report has been signed electronically. Number of Addenda: 0 Note Initiated On: 02/22/2022 12:32 PM Procedure Code(s): --- Professional --- 85014, Colonoscopy, flexible; with removal of tumor(s), polyp(s), or other lesion(s) by snare technique --- Technical --- 63718, Colonoscopy, flexible; with removal of tumor(s), polyp(s), or other lesion(s) by snare technique CPT copyright 2020 [employer]. All rights reserved. The codes documented in this report are preliminary and upon circuit board inspector reviewmay be revised to meet current compliance requirements. Procedure Date: 02/22/2022 12:32:[address] [place] [address] Chyna Ruelas MD GI PROCEDURE ORDERABLES Fin al Result from Last 3 Months or Most Recently Relevant to Health Maintenance Insurance [facility] OUT [facility] PPO OUT OF STATE PPO [facility] OUT OF STATE [place] [address] [address] OUT OF STATE PPO OUT [facility] PPO OUT OF [facility] Care Teams Cyberathlete Relationship Specialty Start Date End Date Candy Mansfield PA [address] [place] [address] [place] [address] PCP - General Physician Detective Sergeant 10/17/24 Fallon Shrestha PA-C [address] [place] [phone] [email or web address] Physician Detective Sergeant Hematology 06/14/23 Additional Source Comments The information contained in this document represents components of the legal health record. It is not the complete legal health record.[facility]
--- OUTSIDE RECORDS SUMMARY | 2024-12-27 14:56 | XMS_ITS | Encounter Summary ---
Author Organization [facility] Address [address] [facility] [address] [place] [address] Phone Care Team Providers Care Tool And Equipment Rental Clerk Name Role Phone Chyna Soliman MD Primary Care Provider [phone] Chyna Soliman MD Unavailable [phone] Fallon Shrestha PA-C Unavailable [phone] Candy Mansfield Primary Care Provide r Reason for Referral * MRI/CAT Scan - Closed Specialty Diagnoses / Procedures Referred By Angie khan Referred To Contact Radiology Diagnoses Generalized abdominal or pelvic swelling or mass or lump Procedures CT Pelvis Chyna Soliman MD Phone: tel: fax: [email or web address] Referral ID Status Reason Start Date Expiration Date Visits Re quested Visits Authorized [id number] Closed 02/28/2019 03/30/2019 1 1 Encounter Details Date Type Department Care Team (Late st Contact Info) Description 02/28/2019 Transcribe Orders Virtual Department [address] [place] [address] Chyna Soliman MD [address] [place] [phone] [email or web address] Generalized abdominal or pelvic swelling or mass or lump (Primary Dx) Social History Tobacco Use Types [...] st Contact Info) Description 10/17/2024 Procedure Pass [address] [address] 06/06/2025 7:30 AM EST Appointment [address] [address] Chaparrita Titus MD [address] [place] [address], [address] [place] [address] [email or web address] documented as of this encounter Results * CT PELVIS WITH CONTRAST (03/12/2019 9:43 AM EST) Anatomical Region Laterality Modality Pelvis Computed Tomogra phy 03/12/2019 2:18 PM EST Impressions 03/12/2019 2:58 PM EST 1. Fluid-filled distal small bowel, more fluid than typical. Findings can be seen with infectious or inflammatory enteritis, This could potentially be what was imaged on ultrasound. 2. Normal uterus and adnexa. The study was tailored to the pelvis, imaging from the iliac crests to the pubic symphysis. The abnormality described on the 02/27/2019 ultrasound when reviewing the ultrasound images is shown to be just inferior to the most inferior margin of the liver, and this area was not included on the study. If the patient continues with symptoms, then further imaging to include the abdomen suggested. TOTAL CTDIvol: 6.30 mGy POS [id number] Narrative 03/12/2019 2:58 PM EST EXAM: CT PELVIS WITH CONTRAST HISTORY: - MASS: OTHER [SIGN/SX] 7X2 CM CYSTIC MASS IN THE RIGHT LOWER QUADRANT SEEN BY US, ? HYDROSALPINX VS OTHER TECHNIQUE: CT imaging of the pelvis. Helical axial CT images obtained with coronal and sagittal images reconstructed. IV contrast: 100 mL Omnipaque 240. Oral contrast: 900 mL barium. Radiation dose control: Exam performed with automated exposure control or iterative reconstruction to minimize radiation exposure. COMPARISON: Ultrasound 02/27/2019. FINDINGS: Imaging from the level of the iliac crests through the pubic symphysis. Moderate volume of stool within the included portion of the colon. Oral contrast has transited through to the mid to distal small bowel. Distal ileal bowel loops are not opacified with oral contrast, but are filled with fluid, to the level of the terminal ileum and ileocecal valve. More fluid than typical is seen within the distal small bowel. No bowel wall thickening. No inflammatory stranding of the adjacent fat. The appendix is normal. No evidence for acute appendicitis. Fluid-filled structures within the pelvis all appear to the related to distal small bowel loops. There is no free pelvic fluid. No free air. The bladder is normal. The uterus and adnexa appear normal. There is no pelvic adenopathy. No suspicious bone abnormality or fracture. Procedure Note Lisa Herman MD - 03/12/2019 EXAM: CT PELVIS WITH CONTRAST HISTORY: - MASS: OTHER [SIGN/SX] 7X2 CM CYSTIC MASS IN THE RIGHT LOWER QUADRANT SEEN BY US, ? HYDROSALPINXVS OTHER TECHNIQUE: CT imaging of the pelvis. Helical axial CT images obtainedwith coronal and sagittal images reconstructed. IV contrast: 100 mL Omnipaque 240. Oral contrast: 900 mL barium. Radiation dose control: Exam performed with automated exposure control oriterative reconstruction to minimize radiation exposure. COMPARISON: Ultrasound 02/27/2019. FINDINGS: Imaging from the level of the iliac crests through the pubic symphysis. Moderate volume of stool within the included portion of the colon. Oralcontrast has transited through to the mid to distal small bowel. Distalileal bowel loops are not opacified with oral contrast, but are filledwith fluid, to the level of the terminal ileum and ileocecal valve. Morefluid than typical is seen within the distal small bowel. No bowel wallthickening. No inflammatory stranding of the adjacent fat. The appendix isnormal. No evidence for acute appendicitis. Fluid-filled structures withinthe pelvis all appear to the related to distal small bowel loops. There isno free pelvic fluid. No free air. The bladder is normal. The uterus and adnexa appear normal. There is nopelvic adenopathy. No suspicious bone abnormality or fracture. IMPRESSION: 1. Fluid-filled distal small bowel, more fluid than typical. Findings canbe seen with infectious or inflammatory enteritis, This could potentiallybe what was imaged on ultrasound. 2. Normal uterus and adnexa. The study was tailored to the pelvis, imaging from the iliac crests tothe pubic symphysis. The abnormality described on the 02/27/2019ultrasound when reviewing the ultrasound images is shown to be justinferior to the most inferior margin of the liver, and this area was notincluded on the study. If the patient continues with symptoms, then further imaging to includethe abdomen suggested. TOTAL CTDIvol: 6.30 mGy POS [id number] Chyna Soliman MD IMG CT XSPECIALTY ORDERABLE S Final Result documented in this encounter Visit Diagnoses Diagnosis Generalized abdominal or pelvic swelling or mass or lump- Primary Abdominal or pelvic swelling, mass, or lump, generalized Generalized abdominal or pelvic swelling or mass or lump Abdominal or pelvic swelling, mass, or lump, generalized documented in this encounter Care Teams Tool And Equipment Rental Clerk Relationship Specialty Start Date End Date Chyna Soliman MD [address] [place] [address] PCP - General 04/27/17 10/16/24 Candy Mansfield PA [address] [place] [address] [place] [address] PCP - General Physician Aerospace Stress Engineer 10/17/24 Chyna oSliman MD [address] [place] [email or web address] Insurance Assigned Provider 07/29/23 01/28/24 Fallon Shrestha PA-C [address] [place] [address] Physician Aerospace Stress Engineer Hematology 06/14/23 documented as of this encounter Additional Source Comments The information contained in this document represents components of the legal health record. It is not the complete legal health record.[facility]
--- OUTSIDE RECORDS SUMMARY | 2024-12-27 14:56 | XMS_ITS | Encounter Summary ---
Author Organization [facility] Address [address] [employer] [facility] [address] [place] [address] Phone Care Team Providers Care Visiting Housekeeper Name Role Phone Chyna Soliman MD Primary Care Provider Chyna Soliman MD Unavailable Fallon Shrestha-C Unavailable [phone] Candy Mansfield Primary Care Provide r Encounter Details Date Type Department Care Team (Latest Contact Info) Description 03/05/2019 Transcribe Orders [facility] Laboratory [address] [place] [address] Freddy Bird MD [address] [address] [email or web address] Elevated LFTs; Calculus of gallbladder without [...] st Contact Info) Description 10/17/2024 Procedure Pass [facility] [address] [place] [address] 06/06/2025 7:30 AM EST Appointment [facility] [address] [place] [address] Chaparrita Titus MD [address] [place] [address], [address] [place] [address] [email or web address] documented as of this encounter Procedures Procedure Name Priority Date/Time Associated Diagnosis Comments Giardia antigen screen Routine 03/05/2019 7:34 AM EST Elevated LFTs Calculus of gallbladder without cholecystitis without obstruction OVA AND PARASITES, STOOL Routine 03/05/2019 7:34 AM EST Elevated LFTs Calculus of gallbladder without cholecystitis without obstruction H. PYLORI ANTIGEN, STOOL Routine 03/05/2019 7:34 AM EST Elevated LFTs Calculus of gallbladder without cholecystitis without obstruction documented in this encounter Results * (ABNORMAL) Giardia antigen screen (03/05/2019 7:34 AM EST) [facility] GIARDIA ANTIGEN Positive(A ) Negative [facility] DPT OF LAB MED AND PAT+ Comment: (NOTE) Stool containing large amounts of leukocytes or red blood cells may give falsely positive results. ADDITIONAL INFORMATION Test Performed by Enzyme Immunoassay. Stool (Stool) 03/05/2019 7:3 4 AM EST 03/05/2019 7:36 AM EST us Freddy Bird MD MICROBIOLOGY - GENERAL ORDERA BLES Final Result [facility] DPT OF LAB MED AND PAT+ [address] [place] [address] * (ABNORMAL) Ova and parasites, stool (03/05/2019 7:34 AM EST) Special Requests None 03/05/2019 7:34 AM EST [facility] DIRECT EXAM GIARDIA LAMBLIA SEEN IN FORMALIN CONCENTRATE (A) 03/06/2019 2:53 PM EST [facility] DIRECT EXAM No parasites found by Trichrome Stain 03/06/2019 2:53 PM EST [facility] Stool (Stool) 03/05/2019 7:3 4 AM EST 03/05/2019 7:36 AM EST us Freddy Bird MD MICROBIOLOGY - GENERAL ORDERA BLES Final Result [facility] [address] [place] [address] * H. pylori antigen, stool (03/05/2019 7:34 AM EST) [facility] Negative Negative [facility] DPT OF LAB MED AND PAT+ Stool (Stool) 03/05/2019 7:3 4 AM EST 03/05/2019 7:36 AM EST us Freddy Bird MD BODY FLUIDS AND STOOLS ORDERA BLES Final Result [facility] DPT OF LAB MED AND PAT+ [address] [place] [address] documented in this encounter Visit Diagnoses Diagnosis Elevated LFTs Other abnormal blood chemistry Calculus of gallbladder without cholecystitis without obstruction documented in this encounter Care Teams Visiting Housekeeper Relationship Specialty Start Date End Date Chyna Soliman MD [address] [place] [address] PCP - General 04/27/17 10/16/24 Candy Mansfield PA [address] [place] [address] [place] [address] PCP - General Physician Draftsperson 10/17/24 Chyna Solmian MD [address] [place] [address] [email or web address] Insurance Assigned Provider 07/29/23 01/28/24 aFllon Shrestha PA-C [address] [place] [address] [email or web address] Physician Draftsperson Hematology 06/14/23 documented as of this encounter Additional Source Comments The information contained in this document represents components of the legal health record. It is not the complete legal health record.[facility]
--- OUTSIDE RECORDS SUMMARY | 2024-12-27 14:56 | XMS_ITS | Encounter Summary ---
Author Organization [facility] Address [address] [place] [id number] Phone Care Team Providers Care Deicer Finisher Name Role Phone Chyna Soliman MD Primary Care Provider Chyna Soliman MD Unavailable [phone] Fallon Shrestha-C Unavailable [phone] Candy Mansfield Primary Care Provide r Encounter Details Date Type Department Care Team (Late st Contact Info) Description 09/11/2023 Procedure Pass [facility], [address] [address] Social History Tobacco Use Types Packs/Day Years [...] st Contact Info) Description 10/17/2024 Procedure Pass [address] [id number] 06/06/2025 7:30 AM EST Appointment [address] [address] Chaparrita Titus MD [address] [facility], [address] [place] [address] [email or web address] documented as of this encounter Visit Diagnoses Not on filedocumented in this encounter Care Teams Deicer Finisher Relationship Specialty Start Date End Date Chyna Soliman MD [address] [place] [id number] [email or web address] PCP - General 04/27/17 10/16/24 Candy Mansfield PA [address] [place] [address] Dr Tamayo [address] [place] [id number] PCP - General Physician Supervisor Denture Department 10/17/24 Chyna Soliman MD [address] [place] [id number] Insurance Assigned Provider 07/29/23 01/28/24 Fallon Shrestha PA-C [address] [place] [email or web address] Physician Supervisor Denture Department Hematology 06/14/23 documented as of this encounter Additional Source Comments The information contained in this document represents components of the legal health record. It is not the complete legal health record.[facility]
--- NOTE | 2024-12-27 14:59 | MHC.PC.OV ---
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 Director Required: No Accompanied by: Self / Same As Patient Allergies No Known Allergies Allergy (Unknown, Verified 12/27/24 15:17) Medication List - Last Reconciled 12/27/24 by Candy Mansfield PA-C No Known Home Meds Tobacco use date assessed: 09/10/24 Dental Screening Dental Screen Date: 12/27/24 Did you have a dental visit in the last 12 months?: Yes Did you have a dental problem in the last 6 months where you did not have access to dental care?: No Was dental information given to patient?: Patient has dentist HPI Annual PE RE HPI Details 53 year old female with past history of BPPV coming in for annual exam. Presenting for an annual wellness visit. Reports episodes of gallbladder attacks with pain and sweating, previously diagnosed as sludgy gallbladder. Lipid profile shows high HDL at 107 mg/dL, LDL at 110 mg/dL, and triglycerides at 42 mg/dL, all within desirable ranges. 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 1. Little interest or pleasure in doing things: not at all 2. Feeling down, depressed, or hopeless: not at all 3. Trouble falling or staying asleep, or sleeping too much: not at all 4. Feeling tired or having little energy: not at all 5. Poor appetite or overeating: not at all 6. Feeling bad about yourself - or that you are a failure or have let yourself or your family down: not at all 7. Trouble concentrating on things, such as reading the newspaper or watching television: not at all 8. Moving or speaking so slowly that other people could have noticed. Or the opposite - being so fidgety or restless that you have been moving around a lot more than usual: not at all 9. Thoughts that you would be better off or of hurting yourself in some way: not at all Total score: 0 Depression Screening Interpretation: Negative Depression Screening Done: Yes Source: Developed by Drs. Leeroy Villa, Maryellen Marks, Robson Mendiola and colleagues, with an educational diana from [employer]. Thrive Questionnaire Date Thrive assessed: 08/26/24 I am a: Patient What is your living situation today?: I have a steady place to live Within the past 12 months, did the food you bought not last and you didn't have the money to get more?: Never true Within the past 12 months, did you worry whether your food would run out before you got money to buy more?: Never true Do you have trouble paying for medicines?: No Do you have trouble getting transportation to medical appointments?: No Do you have trouble paying your heating and electricity bill?: No Do you have trouble taking care of your child, family member or friend?: No Do you have trouble with day-to-day activities such as bathing, preparing meals, shopping, managing finances, etc.?: No Are you currently unemployed and looking for a job?: No Are you interested in more education?: No Please select the resources that you would like help with: None Currently or been in a relationship where the following occur: No concerns reported THRIVE Score: 0 AUDIT C Alcohol Use Questionnaire (AUDIT-C) 1. How often do you have a drink containing alcohol?: 2-4 times a month 2. How many drinks containing alcohol do you have on a typical day when you are drinking?: 1 or 2 3. How often do you have six or more drinks on one occasion?: Never Total Score: 2 NICHOLAS-7 AMB Questionnaire NICHOLAS-7 Date NICHOLAS - 7 assessed: 12/27/24 Feeling nervous, anxious, or on edge: 0 = Not at all Not being able to stop or control worryin = Not at all Worrying too much about different things: 0 = Not at all Trouble relaxin = Not at all Being so restless that it is hard to sit still: 0 = Not at all Becoming easily annoyed or irritable: 0 = Not at all Feeling afraid as if something awful might happen: 0 = Not at all Total NICHOLAS-7 score (0-4 normal; 5-9 mild; 10-14 moderate; 15-21 severe): 0 Source: Developed by Drs. Leeroy Villa, Maryellen Marks, Robson Mendiola and colleagues, with an educational diana from [employer]. NICHOLAS-7 Assessment Billing NICHOLAS-7 Assessment Tool: NICHOLAS-7 Assessment 19834 Review of Systems Const Denies body aches, Denies fatigue, Denies fever(s), Denies frequent falls, Denies headache(s) and Denies weakness Eyes Reports no additional complaints and Denies change in vision ENT Denies dysphagia, Denies dizziness, Denies facial pain, Denies headache(s), Denies nasal congestion and Denies odynophagia Card Denies chest pain, Denies syncope, Denies irregular heart rhythm, Denies leg edema, Denies lightheadedness and Denies dyspnea Resp Denies cough and Denies dyspnea GI Denies constipation, Denies dysphagia, Denies dyspepsia, Denies diarrhea, Denies nausea, Denies odynophagia and Denies vomiting Denies urinary frequency, Denies dysuria, Denies urinary hesitancy and Denies urinary urgency Musc Denies back pain and Denies myalgias Skin/Breast Reports system reviewed and no additional complaints, except as documented Neuro Denies dizziness, Denies syncope, Denies frequent falls, Denies headache(s) and Denies weakness Psych Reports no additional complaints Endo Denies fatigue Physical exam (Primary Care) Vital Signs: Last Vital Signs Pulse 69 12/27/24 15:00 BP 110/56 L 12/27/24 15:00 Pulse Ox 98 12/27/24 15:00 Oxygen Delivery Method Room Air 12/27/24 15:00 BMI result Body Mass Index 22.1 Tobacco/Smoking Status: Tobacco use Status Tobacco use date assessed 09/10/24 12/27/24 15:05 Patient Tobacco Use Status Never used Tobacco 12/27/24 15:05 e-Cigarette/Vaping Use Never Used 12/27/24 15:05 PHQ-9: PHQ-9 Score PHQ-9: Total score 0 12/27/24 16:27 Depression Screening Interpretation: Negative Thrive Assessment: Date of Thrive Assessment Date Thrive assessed 08/26/24 12/27/24 15:05 Currently or been in a relationship where the following occur: No concerns reported Const General: cooperative, healthy appearing, comfortable and no acute distress Orientation/consciousness: patient oriented x3 HENMT Head: Yes normocephalic Ears: hearing grossly normal bilaterally, external ears normal, TM's normal bilaterally and EAC's normal General nose exam: Normal external nose present Face and sinus: Yes normal facial exam and Yes sinuses nontender Mouth: Normal oral and palatal mucosa present and tongue normal Throat: Yes posterior oropharynx normal Eyes General: appearance normal, both eyes and all related structures Conjunctivae: conjunctivae normal Pupils: Equal, round and reactive pupils present EOM: EOMs intact bilaterally and No Nystagmus present Neck Neck: Yes normal visual inspection, Yes full ROM and Yes no lymphadenopathy Chest Chest palpation & inspection: normal inspection of the chest Resp Effort & Inspection: normal respiratory effort Auscultation: clear to auscultation bilaterally, no crackles, no rales, no rhonchi, no wheezes and breath sounds present Cardio Rate: regular rate Rhythm: regular rhythm Peripheral pulses: radial pulses present and dorsalis pedis present GI Inspection: Yes normal to inspection and No Abdominal wall edema Palpation (GI): Soft to palpation, not firm and nontender Auscultation: normal bowel sounds Rectal Exam - Female: deferred General: Yes no CVA tenderness Back/Spine/Pelvis Back: no CVA tenderness Skin General skin exam: no rashes or lesions noted Neuro General: patient oriented x3 Cranial nerves: Yes Equal, round and reactive pupils present, Yes Midline tongue present, Yes Ability to bilaterally elevate shoulders present and No Nystagmus present Gait exam (Neuro): Normal gait present Extrem General: Yes normal to inspection, Yes full ROM, No no pedal edema and No edema Psych Speech and movement: Normal speech and movement present Affect: normal affect Insight: Good insight present (Psych) Judgement: Good judgement present (Psych) Immunizations Tenivac (PF) 5 Lf unit-2 Lf unit/0.5 mL intramuscular syringe Performing Provider: Candy Mansfield PA-C Performing Location: [facility] Adult Primary [facility] Administered by: ESE Cat on 12/27/24 15:48 Dose Route Admin Location Dispensed Lot Number Expiration Date NDC Dining Car Hop 0.5 mL IM Left Deltoid 0.5 mL [id number] 07/23/26 43740-885-37 [employer] Total Dispensed Waste 0.5 mL 0 % VIS Given Date VIS Provided VIS Publication Date 12/27/24 Single Vaccine 20 Eligibility Eligibility Date Funding Source Not [facility] Eligible 12/27/24 Private Coding Level of Care Code Est Pt Prev Care 40-64y(54831) Diagnoses Annual physical exam Z00.00 BPPV (benign paroxysmal positional vertigo) H81.10 Seasonal allergies J30.2 Screening for colorectal cancer Z12.11; Z12.12 Screening for breast cancer Z12.39 Gallbladder sludge K82.8 Family history of cirrhosis of liver Z83.79 Additional Codes NICHOLAS-7 Assessment Billing - NICHOLAS-7 Assessment Tool: NICHOLAS-7 Assessment 05457 ([id number]) Assessment & Plan Assessment & Plan (1) Annual physical exam: Code(s): Z00.00 - Encounter for general adult medical examination without abnormal findings Category: Medical Plan: Patient is up-to-date on all recommended routine screenings and vaccinations for her age. Blood work is up-to-date and has been reviewed today with the patient. Healthy diet and regular exercise is encouraged. Plan to follow up yearly or sooner as needed (2) BPPV (benign paroxysmal positional vertigo): Code(s): H81.10 - Benign paroxysmal vertigo, unspecified ear Category: Medical Plan: No recent episodes at this time continue to monitor. (3) Seasonal allergies: Code(s): J30.2 - Other seasonal allergic rhinitis Category: Medical Plan: May use claritin or zyrtec as needed. (4) Screening for colorectal cancer: Comment: 2023 repeat in 5 years Code(s): Z12.11 - Encounter for screening for malignant neoplasm of colon; Z12.12 - Encounter for screening for malignant neoplasm of rectum Category: Medical Plan: Up to date and continue to follow with [facility]. (5) Screening for breast cancer: Code(s): Z12.39 - Encounter for other screening for malignant neoplasm of breast Category: Medical Plan: Scheduled for March. (6) Gallbladder sludge: Code(s): K82.8 - Other specified diseases of gallbladder Category: Medical Plan: The patient experiences recurrent gallbladder attacks characterized by pain and sweating, previously diagnosed as a sludgy gallbladder. A follow-up with gastroenterology is scheduled for March to evaluate and manage these symptoms further. (7) Family history of cirrhosis of liver: Code(s): Z83.79 - Family history of other diseases of the digestive system Category: Medical Plan: Patient has a family history of cirrhosis of liver and recent lab results appeared normal and we will continue to monitor at this time. I did place orders for iron profile and ferritin to screen for hemochromatosis. Plan This note was constructed using voice recognition software. While every effort has been made to ensure accuracy and granite setter, still areas may have been included sometimes these areas may affect the content or meeting of the given symptoms. Total time spent caring for the patient today was 30 minutes. This includes time spent before the visit reviewing the chart, time spent during the visit, and time spent after the visit and documentation. Patient was informed and verbally consented to the use of an ambient scribe for clinic note documentation during this visit. Orders: Orders IRON PROFILE Today Z83.79 - Family history of other diseases of the digestive system Ferritin Today Z83.79 - Family history of other diseases of the digestive system Td Immunization Today Z23 - Encounter for immunization Referrals Genetics Referral Z82.0 - Family history of epilepsy and other diseases of the nervous system
[2024-12-27 15:00] VITALS: BP 110/56; PULSE 69; O2SAT 98; BMI 22.1
== END 2024-12-27 16:23 | disposition home or self-care (01) ==
LOC: HO.HMCH 14:52
DX: Z00.00 Encounter for general adult medical examination without abnormal findings (principal); H81.10 Benign paroxysmal vertigo, unspecified ear; J30.2 Other seasonal allergic rhinitis; Z12.11 Encounter for screening for malignant neoplasm of colon; Z12.12 Encounter for screening for malignant neoplasm of rectum; Z12.39 Encounter for other screening for malignant neoplasm of breast; K82.8 Other specified diseases of gallbladder; Z83.79 Family history of other diseases of the digestive system; Z23 Encounter for immunization

== ENCOUNTER → 2024-12-27 14:51 | Outpatient (BNVA) | payer BC, SELFPAY | DX: Z00.00 Encounter for general adult medical examination without abnormal findings (principal); H81.10 Benign paroxysmal vertigo, unspecified ear; J30.2 Other seasonal allergic rhinitis; K82.8 Other specified diseases of gallbladder; Z23 Encounter for immunization; Z83.79 Family history of other diseases of the digestive system; Z82.0 Family history of epilepsy and other diseases of the nervous system | CPT/HCPCS: 90471; 90714; 96127 ==